=== PATIENT | female | born 1960 | race Caucasian/White ===

== ENCOUNTER 2023-08-13 10:05 | Inpatient (IN) ==
--- NOTE | 2023-08-13 11:07 | Emergency Department Note ---
Impression & Plan Delusions, Bipolar depression, Schizoaffective disorder, Noncompliance with medication regimen ED Provider Note ED Provider Note NAME: SASHA GREWAL AGE:62 SEX: Female : 1960 ARRIVES VIA: Private vehicle INFORMANT: Patient, daughter ED PROVIDER(s): Claudia Mcgowan DO CHIEF COMPLAINT: Mental health evaluation HPI: This is a 62-year-old female who presents with family at bedside due to concern for worsening mental health. Patient does have mental health history, and daughter states has been off of her medications for several weeks and has deteriorated. They were at an outpatient mental health appointment today when patient also made a suicidal statement in front of the physician advertising assistant. Daughter states this was new and different for her as well. Daughter states when she is off her medications she will typically say bizarre things but she had never made statements of suicide. No prior suicide attempt. Daughter states she is also noticed as she has gotten older when she does stop taking her medications her symptoms seem worse than when she was younger. Daughter states she has a power of state's attorney and has been helping to care for her since she was 17. Patient states she is a smoker, denies drug or alcohol use. She has difficulty answering specific questions at bedside regarding her general health. PAST MEDICAL HISTORY:See Below PAST SURGICAL HISTORY:See Below FAMILY HISTORY:See Below SOCIAL HISTORY:See Below HOME MEDICATIONS:See Below ALLERGIES:See Below VITALS:See Below PHYSICAL EXAMINATION: GENERAL: alert, unwell appearing, no distress, non-toxic, poor hygiene EYE EXAM: normal conjunctiva, PERRL and EOM's grossly intact OROPHARYNX: no exudate, no erythema, lips, buccal mucosa, and tongue normal and mucous membranes are dry, poor dentition and mostly edentulous NECK: supple, no nuchal rigidity, no adenopathy, non-tender LUNGS: Clear to auscultation. Normal chest wall mechanics, no w/r/r HEART: no murmurs, S1 normal and S2 normal ABDOMEN: abdomen soft, non-tender, normo-active bowel sounds, no masses, no rebound or guarding. BACK: Back is symmetrical on inspection and there is no deformity, no midline tenderness, no CVA tenderness. SKIN: no rashes, petechiae, orbruising UPPER EXTREMITIES: upper extremities are grossly normal. FROM, nml pulses b/l. LOWER EXTREMITIES: No pitting edema. FROM, nml pulses b/l. NEURO EXAM: Normal sensorium, cranial nerves II-XII grossly intact, normal speech, no facial droop,nogross weakness of arms, no gross weakness of legs. Gross sensation intact. No ataxia. Vital Signs: reviewed and remarkable Differential Diagnosis: mood disorder, suicidal ideation, anxiety, depression, substance abuse, toxidrome, infection, hypoglycemia, electrolyte abnormalities, ICH as well as others were considered. MEDICAL DECISION MAKING: This is a 62-year-old female who presents due to family concern for deterioration in her overall condition as she has been noncompliant taking medications for her mental health. Patient was afebrile vital signs stable. Patient with difficulty answering questions at bedside with scattered thoughts. She did voice suicidal ideation to her mental health practitioner this morning during a visit. Daughter provides most of the history at bedside. Labs drawn and sent, IV established, EKG performed at bedside and interpreted by me and patient monitored on telemetry. She was given IV fluids and sent for CT of the head additionally. Patient's labs and imaging reassuring. Patient evaluated by case management. 302 petition started by daughter signed by me and delegate contacted. Patient accepted to [facility] for additional inpatient mental health treatment. Consultation(s): 1306: Patient seen and evaluated by case management. Daughter filled out 302 petition. 302 signed by me. Delegate contacted by manager case. ER Treatment Provided: See below Diagnostics Interpreted By Me: -ECG: Normal sinus at 68, normal axis, normal intervals, no acute ST/T wave changes -Cardiac Monitoring: An order was placed for continuous cardiac monitoring. The monitor shows a rate of 78 with normal sinus rhythm. -Laboratory studies: As stated above and show below. -Imaging studies: CT head: No obvious ICH X-ray Chest: A single view study of the chest was reviewed and was negative for cardiomegaly, focal infiltrate, effusion, pulmonary edema, or wide mediastinum. Triage Nursing Note Reviewed Prior/Outside Records Reviewed Past Med/Surg History Medical History (Updated 08/13/23 @ 15:53 by Claudia Mcgowan DO) Emphysema lung Postmenopausal bleeding Hyperlipidemia Anemia Schizoaffective disorder Insomnia Bipolar depression Surgical History S/P BSO (bilateral salpingo-oophorectomy) UNILATERAL, patient thinks Left ovary gone No significant past surgical history Family History Brother Lung cancer Social History (Updated 06/07/23 @ 14:27 by Rona Jaime LPN) Smoking Status: Current every day smoker Tobacco Type: Cigarettes Age Started Using Tobacco: 16; packs per day: 0.50; Cigarettes Per Day: 10; Second Hand Exposure: Yes; Do You Dip or Chew Tobacco: No; Hx Alcohol Use: Yes Alcohol type: beer Alcohol type Comment: rarely consumes anymore, just holidays. Hx Substance Use: Yes (hx of drug abuse 10 + years ago) Prescribed Medications: Marijuana and Other Non-Prescribed Medications: Hallucinogens and Marijuana Last Used Substance Other:: 10 years ago Preferred Language: Maltese Beliefs That Will Affect Care: None marital status: Current Living Situation: Alone current occupational status: unemployed How many Children do You have: 3 Feels Safe at Home: Yes Childhood Exposure to Second-Hand Smoke: Yes Diet: regular caffeine: Yes (does 1/2 caffeine 1/2 decaf) Dental Care, Regularly: No Physical Activity Frequency: Daily Physical Activity Frequency Comment: walks a lot Seatbelt Use: always Sunscreen Use: No Gender Identity: Female Assistive Devices: Glasses Allergies Allergies Allergy/AdvReac Type Severity Reaction Status Date / Time No Known Allergies Allergy Verified 07/02/23 12:25 Home Meds Home Medications Medication Instructions Recorded Confirmed paliperidone palmitate 156 mg/mL 156 mg IM Q30D 06/07/23 08/13/23 intramuscular syringe (Invega Sustenna) risperidone 2 mg tablet 2 mg PO DAILY 06/07/23 08/13/23 Previous Rx's Medication Instructions Recorded Cock-Up Wrist Splint Short #2 ea 02/13/19 calcium carbonate 500 mg calcium 500 mg PO DAILY PRN dyspepsia #30 03/16/23 (1,250 mg) tablet tabs sertraline 50 mg tablet 50 mg PO DAILY #30 tabs 06/08/23 trazodone 100 mg tablet 100 mg PO DAILY #30 tabs 06/08/23 divalproex 250 mg tablet,delayed 250 mg PO BID #60 tabs 06/09/23 release Results & Data (ED) Vital Signs Vital Signs - 24 hr 08/13/23 10:15 08/13/23 13:15 Temperature 37 C 36.8 C Temperature Source Oral Oral Pulse Rate 86 Pulse Rate [Right Finger] 74 Respiratory Rate 18 22 Blood Pressure 132/87 Blood Pressure [Right Arm] 115/74 Blood Pressure Mean 102 Blood Pressure Mean [Right Arm] 87 Blood Pressure Position Sitting Pulse Oximetry 93 95 Oxygen Delivery Method Room Air Room Air Sepsis Recent Fever Within 48 Hours No Sepsis New/Unexplained Change in Mental Status No Sepsis Action Taken by Nursing No Action Required Laboratory Data 08/13/23 11:54 08/13/23 11:54 Lab Results 08/13/23 08/13/23 08/13/23 Range/Units 10:35 11:53 11:54 WBC 7.26 (4.8-10.8) K/ul RBC 5.08 (4.20-5.40) M/uL Hgb 15.2 (12.0-16.0) g/dl Hct 46.4 (37.0-47.0) % MCV 91.3 (80.0-100.0) fL MCH 29.9 (25.0-34.0) pg MCHC 32.8 (32.0-36.0) g/dL RDW Std Deviation 42.0 (36.4-46.3) fL RDW Coeff of Merissa 12.5 (11.5-14.5) % Plt Count 212 (130-400) K/uL MPV 10.5 (9.4-12.4) fL Immature Gran % (Auto) 0.3 % Neut % (Auto) 64.4 % Lymph % (Auto) 28.5 % Gallia % (Auto) 5.4 % Eos % (Auto) 0.8 % Baso % (Auto) 0.6 % Neut # (Auto) 4.68 (1.40-6.50) K/uL Lymph # (Auto) 2.07 (1.20-3.40) K/uL Gallia # (Auto) 0.39 (0.11-0.59) K/uL Eos # (Auto) 0.06 (0.00-0.50) K/uL Baso # (Auto) 0.04 (0.00-0.20) K/uL Immature Gran # (Auto) 0.02 (0.01-0.20) K/uL Sodium 139 (136-145) mmol/L Potassium 4.0 (3.5-5.1) mmol/L Chloride 107 (98-107) mmol/L Carbon Dioxide 28 (21-32) mmol/L Anion Gap 4 (3-11) BUN 15 (6-23) mg/dl Creatinine 0.67 (0.6-1.2) mg/dl Est Cr Clr Drug Dosing 74.2 ml/min Est GFR ( Amer) 108.4 ml/min Est GFR (Non-Af Amer) 93.5 ml/min BUN/Creatinine Ratio 22.4 H (10-20) Glucose 97 (70-99(Fasting)) mg/dl Calcium 9.3 (8.6-10.3) mg/dl Total Bilirubin 0.4 (0.2-1.0) mg/dl AST 13 (13-39) U/L ALT 7 (7-52) U/L Alkaline Phosphatase 55 (34-104) U/L Total Protein 6.8 (6.0-8.3) gm/dl Albumin 4.1 (3.4-5.0) gm/dl Globulin 2.7 (2.5-4.0) gm/dl Albumin/Globulin Ratio 1.5 (0.9-2) TSH 0.700 (0.300-4.500) uIu/ml Urine Color Yellow Urine Appearance Clear (Clear) Urine pH 7.0 (4.5-7.5) Ur Specific [place] 1.006 (1.000-1.030) Urine Protein Negative (Negative) Urine Glucose (UA) Negative (Negative) Urine Ketones Negative (Negative) Urine Blood Negative (Negative) Urine Nitrite Negative (Negative) Urine Bilirubin Negative (Negative) Urine Urobilinogen Negative (Negative) Ur Leukocyte Esterase 1+ H (Negative) Urine WBC (Auto) 1-5 (0-5) /hpf Urine RBC (Auto) 0-4 (0-4) /hpf U Hyaline Cast (Auto) 0 (0-5) /lpf U Epithel Cells (Auto) 10-20 H (0-5) /lpf Urine Bacteria (Auto) Negative (Negative) Salicylates < 3.0 L (3.0-30) mg/dl Urine Opiates Screen Neg (Neg) Ur Methadone, Qual Neg (Neg) Acetaminophen < 3 L (10-30) ug/ml Urine Barbiturates Neg (Neg) Ur Phencyclidine (PCP) Neg (Neg) U Amphetamin/Meth Scrn Neg (Neg) MDMA (Ecstasy) Screen Neg (Neg) U Benzodiazepines Scrn Neg (Neg) Ur Cocaine Metabolite Neg (Neg) U Marijuana (THC) Screen Neg (Neg) Ethyl Alcohol mg/dL < 10.0 (<10.0) mg/dl SARS-CoV-2, RNA, NAAT NEGATIVE (NEGATIVE) Administered Medications Sodium Chloride (Nss) 1,000 mls @ 125 mls/hr IV .Q8H DICK Stop: 09/12/23 11:14 Last Infusion: 08/13/23 14:54 Dose: 0 mls/hr Documented By: Admin: 08/13/23 12:15 Dose: 125 mls/hr Documented By: CPB Imaging Data Radiologist's Impression: Head CT 08/13/23 11:[address] DOSE: 547.75 mGy.cm HISTORY: delirium TECHNIQUE: Multiaxial CT images of the head were performed without the use of intravenous contrast. Automated exposure control was utilized for this study. A dose lowering technique was utilized adhering to the principles of ALARA. Comparison: None. Findings: The paranasal sinuses and mastoid air cells are clear. The calvarium and skull base are intact. The ventricles and sulci are within normal limits. There is no mass, hematoma, midline shift, or acute infarct. Impression: No acute intracranial abnormality. ACT 112: Negative or not required by law. Electronically signed by: Santiago Gibbs M.D. 08/13/2023 12:05 PM Chest X-Ray 08/13/23 11:03 XR chest 1V portable HISTORY: 62 years-old Female delirium acutely altered mental status COMPARISON: None TECHNIQUE: AP view of the chest FINDINGS: Cardiomediastinal and hilar silhouettes are within normal limits. No pneumothorax, pleural effusion or airspace consolidation. The bones appear grossly intact. Mild linear subsegmental atelectasis versus scarring. IMPRESSION: Cardiomegaly without acute process. ACT 112: Negative or not required by law. The above report was generated using voice recognition software. It may contain grammatical, syntax or spelling errors. Electronically signed by: Jose Hernández M.D. 08/13/2023 11:49 AM Discharge Plan Visit Data Chief Complaint: Mental Health Evaluation Stated Complaint: STATING SHE DOES NOT WANT TO LIVE ED Provider: Claudia Mcgowan Discharge Problem: Delusions, Bipolar depression, Schizoaffective disorder, Noncompliance with medication regimen Patient Disposition: Admitted As Inpatient Discharge Instructions Interventions: ED Discharge Assessment Last Done: 08/13/23 14:52
[2023-08-13 11:27] LABS: Appearance Urine Clear (Clear); Bacteria Urine Automated Negative (Negative); Bilirubin Urine Negative (Negative); Blood Urine Negative (Negative); Cast Urine Automated 0 /lpf (0-5); Color Urine Yellow; Glucose Urine UA Negative (Negative); Ketones Urine Negative (Negative); Leukocyte Esterase Urine 1+ (Negative); Nitrite Urine Negative (Negative); Protein Urine Negative (Negative); RBC Urine Automated 0-4 /hpf (0-4); Specific Gravity Urine 1.006 (1.000-1.030); Urobilinogen Urine Negative (Negative)
--- NOTE | 2023-08-13 11:50 | XRay Report ---
XR chest 1V portable HISTORY: 62 years-old Female delirium acutely altered mental status COMPARISON: None TECHNIQUE: AP view of the chest FINDINGS: Cardiomediastinal and hilar silhouettes are within normal limits. No pneumothorax, pleural effusion o r airspace consolidation. The bones appear grossly intact. Mild linear subsegmental atelectasis versu s scarring. IMPRESSION: Cardiomegaly without acute process. ACT 112: Negative or not required by law. The above report was generated using voice recognition software. It may contain grammatical, syntax o r spelling errors. Electronically signed by: Jose Hernández M.D. 08/13/2023 11:49 AM
[2023-08-13 11:53] LABS: Amphetamines+Metham, Urine Neg (Neg); Barbiturates, Urine Neg (Neg); Benzodiazepine, Urine Neg (Neg); Cocaine, Urine Neg (Neg); MDMA (Ecstacy), Urine Neg (Neg); Marijuana, Urine Neg (Neg); Methadone, Urine Neg (Neg); Opiate, Urine Neg (Neg); Phencyclidine, Urine Neg (Neg)
--- NOTE | 2023-08-13 12:06 | CT Scan Report ---
HEAD CT NONCONTRAST CT DOSE: 547.75 mGy.cm HISTORY: delirium TECHNIQUE: Multiaxial CT images of the head were performed without the use of intravenous contrast. A utomated exposure control was utilized for this study. A dose lowering technique was utilized adheri ng to the principles of ALARA. Comparison: None. Findings: The paranasal sinuses and mastoid air cells are clear. The calvarium and skull base are int act. The ventricles and sulci are within normal limits. There is no mass, hematoma, midline shift, or acute infarct. Impression: No acute intracranial abnormality. ACT 112: Negative or not required by law. Electronically signed by: Santiago Gibbs M.D. 08/13/2023 12:05 PM
[2023-08-13] MEDS: SODIUM CHLORIDE 0.9% 1,000 ML IV SCH (12:15)
[2023-08-13 12:29] LABS: Basophils # (auto) 0.04 K/uL (0.00-0.20); Basophils % (auto) 0.6 %; Eosinophils # (auto) 0.06 K/uL (0.00-0.50); Eosinophils % (auto) 0.8 %; Hematocrit (blood only) 46.4 % (37.0-47.0); Hemoglobin 15.2 g/dl (12.0-16.0); Immature Granulocytes # (auto) 0.02 K/uL (0.01-0.20); Immature Granulocytes % (auto) 0.3 %; Lymphocytes # (auto) 2.07 K/uL (1.20-3.40); Lymphocytes % (auto) 28.5 %; Mean Corpuscular Hemoglobin 29.9 pg (25.0-34.0); Mean Corpuscular Hgb Conc 32.8 g/dL (32.0-36.0); Mean Corpuscular Volume 91.3 fL (80.0-100.0); Mean Platelet Volume 10.5 fL (9.4-12.4); Monocytes # (auto) 0.39 K/uL (0.11-0.59); Monocytes % (auto) 5.4 %; Neutrophils # (auto) 4.68 K/uL (1.40-6.50); Neutrophils % (auto) 64.4 %; Platelet Count 212 K/uL (130-400); RDW Coefficient of Variation 12.5 % (11.5-14.5); Red Blood Count 5.08 M/uL (4.20-5.40); White Blood Count 7.26 K/ul (4.8-10.8)
[2023-08-13 12:34] LABS: Albumin Globulin Ratio 1.5 (0.9-2); Albumin Level 4.1 gm/dl (3.4-5.0); BUN Creatinine Ratio 22.4 (10-20); Bilirubin,Total 0.4 mg/dl (0.2-1.0); Calcium 9.3 mg/dl (8.6-10.3); Creatinine Clr Calc Pharmacy 74.2 ml/min; Est GFR (African American) 108.4 ml/min; Est GFR (Non-African American) 93.5 ml/min; Globulin 2.7 gm/dl (2.5-4.0); Total Protein 6.8 gm/dl (6.0-8.3)
[2023-08-13 12:49] LABS: Thyroid Stimulating Hormone 0.7 uIu/ml (0.300-4.500)
[2023-08-13 13:57] LABS: Acetaminophen < 3 ug/ml (10-30); Salicylate < 3.0 mg/dl (3.0-30)
[2023-08-13] MEDS ORDERED: BISMUTH SUBSALICYLATE LIQD 236 ML PO PRN (16:37)
[2023-08-13] MEDS ORDERED: ALUMINUM/MAGNESIUM SUSP 30 ML UDC PO PRN (16:37)
[2023-08-13] MEDS ORDERED: hydrOXYzine HCl 25 MG TAB PO PRN ×2 (16:37)
[2023-08-13] MEDS ORDERED: SODIUM CHLORIDE 0.65% NA SOLN 45 ML (OCEAN) PRN (16:37)
[2023-08-13] MEDS ORDERED: NICOTINE POLACRILEX 2 MG GUM MT PRN (16:37)
[2023-08-13] MEDS ORDERED: MAGNESIUM HYDROXIDE SUSP 30 ML UDC PO PRN (16:37)
[2023-08-13] MEDS: ACETAMINOPHEN 325 MG TAB PO PRN (19:18)
[2023-08-13] MEDS: risperiDONE 2 MG TABLET PO SCH (21:07)
[2023-08-14] MEDS: ALBUTEROL HFA 8 GM INHALER INH PRN (07:15)
--- NOTE | 2023-08-14 07:59 | Electrocardiogram Report ---
Test Reason : Blood Pressure : / mmHG Vent. Rate : 068 BPM Atrial Rate : 068 BPM P-R Int : 146 ms QRS Dur : 080 ms QT Int : 402 ms P-R-T Axes : 042 017 036 degrees QTc Int : 427 ms Poor data quality, interpretation may be adversely affected Normal sinus rhythm Normal ECG When compared with ECG of 05-APR-2023 21:36, No significant change was found Confirmed by Eran Rutherford ([id number]) on 08/14/2023 7:58:54 AM Referred By: REFERRED SELF Confirmed By:Eran Rutherford
[2023-08-14] MEDS: SERTRALINE HCL 50 MG TABLET PO SCH (08:20)
[2023-08-14] MEDS: DIVALPROEX DELAY RELEASE 250 MG TABEC PO SCH (08:20)
[2023-08-14] MEDS: ALBUT/IPRATROP 3MG/0.5MG NEB 3 ML VIAL INH STA (08:35)
--- NOTE | 2023-08-14 13:06 | History & Physical ---
Date of Service August 14, 2023 Impression / Recommendations Impression 62 yo female with a hx of recurrent disorganization/psychosis associated with mood lability presented to ED after period of med noncompliance more disorganized and making suicidal statements to daughter. Overall, I spent a total of 64 minutes with this case, including review of chart, review of records, direct evaluation of the patient, counseling the patient, ordering medication, coordination with nursing, risk assessment, and documentation. (1) Schizoaffective disorder: Plan The patient was admitted to the [facility] ([facility] mental health unit) on q15 min checks (behavioral with suicide precautions) for safety. The patient will participate in group, recreational, and milieu therapies and will be offered additional individual and family sessions as clinically appropriate. risks/benefits/alternatives reviewed re: current medications which she agreed to resume, including oral Invega with plan for GALVIN. pulse ox q shift. Inventory Assets Strengths: verbal, accepting of daughter's help Needs: improve coping and medication compliance Suicide Risk Level Suicide Risk Level: Moderate (q15 min suicide checks) Risk Factors Assessment : Yes Do You Have Access To A Gun?: Yes Health Problems: Yes Mental Health Diagnoses: Yes Substance Use Disorders: No Previous Attempt: No Previous Psychiatric Hospitalization: Yes Protective Factors Assessment : No Employed: No ([employer]DI for mental health) Supportive Family: Yes Psychiatric History Identifying Data SASHA GREWAL is a 62-year-old F who currently lives in [place], has a history of multiple psychiatric hospitalizations for schizoaffective disorder, and was admitted on 08/13/23 15:20 on a 302 involuntary commitment for psychosis/SI. Chief Complaint decompensation due to med noncompliance following inpatient hospitalization 03/2023. History of Present Illness History reviewed and confirmed as per ED CM: Met with patient bedside along with patients daughterNita to complete mental health evaluation. Patient presents sad, bizarre in her responses to questions asked of her, but remains cooperative. Patient admits to suicidal ideations that come and go, but has no particular plan, reporting to history of suicide attempt. When patient was being triaged, she stated that she overdosed, according to patients daughter she did not overdose because she does not have anything to overdose with. Patient will randomly make statements that do not relate to what is being discussed, i.e. I a virgin [place] I am and have been . Patient denies any visual or auditory hallucinations, but reports history. Patient stopped taking her prescribed medications around the end of July because she lost prescriber. Today, patient had an appointment with medication management with [facility]. Patients daughter provided a list of the most recent medications that were prescribed at her last inpatient admission to [facility]. After discharge from [facility] patients daughter felt her Mom was the most stable she has seen her. Patient is diagnosed with Bipolar Disorder and Schizoaffective Disorder. Patient reports stressors as side effects from all of the medication she has been taking and the changes to her medications over the past year. Patient reports depressive symptoms as feelings of helpless/hopelessness, loss of daily functioning, lack of motivation and decrease in ADLs, patient is malodorous. Patient describes severe anxiety on most days with symptoms of hot flashes, shortness of breath and hiccups with occasional panic attacks. Patient was a former alcoholic and drug user but only drinks on rare occasions and does not use drugs now. Patient smokes a pack of cigarettes daily. Patient lives alone in an apartment and receives SSDI for her mental health. Patient reports hyperthyroidism, emphysema, anemia and occasional headaches. Patient had all of her teeth pulled about 5 year ago, had two sets of dentures, but has lost both sets. Dr. Mcgowan does not believe patient has capacity to sign herself in for psychiatric treatment and patients daughter completed petitioning statement and it reads as follows: Sol has made statements that are concerning; she has stated she does not want to be alive. She has been hallucinating, talking to people who are not there. She says she is and has been for a long time. She has stated she sees birds and they are pecking at her head and now she is . She is seeing and hearing things. She makes open threats, but it is a concern that she has stated she no longer wants to live. She is not in a stable state of mind to make decisions. She is making statements that are false in triage about overdosing. She is not on any drugs she is not mentally stable and has been delusional. She has been diagnosed with bipolar, schizophrenia, manic depression, facing thoughts and is recently treating with [facility]. She has been off her medication which heightens her symptoms. She makes threats of killing people, she has stated she doesnt want to live at all and she is she admits it. The patient has been cooperative with [employer] as ordered and unit routines. She denies COPD symptoms but did have some transient O2 sat <90 earlier this am, inhaler ordered. Patient knows that does best when takes medication for her schizoaffective disorder. It seems like there was some disruption in routine due to [facility] in [facility] and needed to transfer to [facility] [employer] [facility] as relies on daughter for transportation. Unclear if she f/u with [facility] recently/since hospital stay. She is presenting as much clearer than yesterday, perhaps as got a dose of Risperdal and settled into milieu. In looking through past ED visits and records that was hospitalized more twice in the fall and tends to exhibit disorganized behavior off of medication such as hoarding, lack of self care then intermittent agitation. Past Psychiatric History Current Psychiatric Diagnosis: schizoaffective disorder, depression, anxiety Outpatient Services: [facility] for med management Previous Psych Admissions: estimates 20 or more, more recent 03/22 [facility], 04/22 [facility] Do You Have Access To A Gun?: Yes History of Previous Suicide Attempt: No Past Medication Trials: not exhaustive list, chart notes back to 2018 list Abilify, previous lithium, trazodone, etc. Patient on Depakote and Zyprexa following [facility] stay then given Invega injection at [facility] Allergies Allergy/AdvReac Type Severity Reaction Status Date / Time No Known Allergies Allergy Verified 07/02/23 12:25 Home Medications Medication Instructions Recorded Confirmed Type Cock-Up Wrist Splint Short #2 ea 02/13/19 07/02/23 Rx calcium carbonate 500 mg calcium 500 mg PO DAILY PRN dyspepsia #30 03/16/23 08/13/23 Rx (1,250 mg) tablet tabs paliperidone palmitate 156 mg/mL 156 mg IM Q30D 06/07/23 08/13/23 History intramuscular syringe (Invega Sustenna) risperidone 2 mg tablet 2 mg PO DAILY 06/07/23 08/13/23 History sertraline 50 mg tablet 50 mg PO DAILY #30 tabs 06/08/23 08/13/23 Rx trazodone 100 mg tablet 100 mg PO DAILY #30 tabs 06/08/23 08/13/23 Rx divalproex 250 mg tablet,delayed 250 mg PO BID #60 tabs 06/09/23 08/13/23 Rx release Family History Family History of: Alcoholism/Drug Abuse Family Mental Health History Comment: "younger brother" Alcohol History Hx of Alcohol Use Over the Past 12 Months: Yes (1 drink every 3 months) AUDIT Total Score: 1 Smoking Use Have You Smoked or Used Tobacco Products in the Last 30 Days: Yes tobacco type: cigarettes Smoking Status: Current every day smoker Smoking packs per day: 1 Substance History Hx of Prescription Med Misuse Over the Past 12 Months: No Hx of Over the Counter Med Misuse Over the Past 12 Months: No Hx of Inhalent Misuse Over the Past 12 Months: No Hx of Organic Substance Use Over the Past 12 Months: No Hx of Illegal Substances/Street Drug Use Over Past 12 Months: No Problems as a Result of Past Substance Use: None Identified Personal History Living Arrangements: Apartment Highest Grade Completed: High School Graduate Marital Status: Number Of Children: 3 Beliefs That Will Affect Care: None Current Legal Problems: No Additional Comments: did not report trauma hx Patient History Medical History Emphysema lung Postmenopausal bleeding Hyperlipidemia Anemia Schizoaffective disorder Insomnia Bipolar depression Surgical History S/P BSO (bilateral salpingo-oophorectomy) UNILATERAL, patient thinks Left ovary gone No significant past surgical history Family History Brother Lung cancer Social History (Updated 06/07/23 @ 14:27 by Rona Jaime LPN) Smoking Status: Current every day smoker Tobacco Type: Cigarettes Age Started Using Tobacco: 16; packs per day: 0.50; Cigarettes Per Day: 10; Second Hand Exposure: Yes; Do You Dip or Chew Tobacco: No; Hx Alcohol Use: Yes Alcohol type: beer Alcohol type Comment: rarely consumes anymore, just holidays. Hx Substance Use: Yes (hx of drug abuse 10 + years ago) Prescribed Medications: Marijuana and Other Non-Prescribed Medications: Hallucinogens and Marijuana Last Used Substance Other:: 10 years ago Preferred Language: Welsh Communication Ability: Effective Breastfeeding Educator Required: No Beliefs That Will Affect Care: None marital status: Current Living Situation: Alone current occupational status: unemployed How many Children do You have: 3 Feels Safe at Home: Yes Childhood Exposure to Second-Hand Smoke: Yes Diet: regular caffeine: Yes (does 1/2 caffeine 1/2 decaf) Dental Care, Regularly: No Physical Activity Frequency: Daily Physical Activity Frequency Comment: walks a lot Seatbelt Use: always Sunscreen Use: No Gender Identity: Female Assistive Devices: None and Glasses Review of Systems Review of Systems: All systems reviewed & are unremarkable except as noted in HPI & below Physical Exam Psychiatric: Orientation: alert and oriented x 3 Apperance: appropriately dressed and + disheveled Eye Contact: + fair eye contact Motor Behavior: no abnormal motor movements (but poor dentition so tongue more prominent) Speech: normal rate/rhythm/volume of speech Affect: + constricted affect Mood: + depressed mood Thought Process: + concrete thought process Thought Content: reality based without delusions Suicidal Thoughts: denies suicidal thoughts Homicidal Thoughts: denies homicidal thoughts Hallucinations: no auditory hallucinations and no visual hallucinations Cognition: language grossly intact; + attention not intact Estimated Intelligence: consistent with education level Insight: + limited insight Judgment: + limited judgement Vital Signs (Past 24 Hours): Last Vital Signs Temp 36.6 C 08/14/23 06:20 Pulse 80 08/14/23 06:20 Resp 18 08/14/23 06:20 BP 93/57 L 08/14/23 06:20 Pulse Ox 95 08/14/23 12:46 O2 Del Method Room Air 08/14/23 12:46 Exam Statement: A physical exam was performed in the ED by Dr. Mcgowan for the purposes of medical clearance. I accept that physical as correct and adequate for the purposes of the inpatient physical exam. Results & Data [facility] Laboratory Results Labs 08/13/23 08/13/23 08/13/23 10:35 11:53 11:54 WBC 7.26 RBC 5.08 Hgb 15.2 Hct 46.4 MCV 91.3 MCH 29.9 MCHC 32.8 RDW Std Deviation 42.0 RDW Coeff of Merissa 12.5 Plt Count 212 MPV 10.5 Immature Gran % (Auto) 0.3 Neut % (Auto) 64.4 Lymph % (Auto) 28.5 [place] % (Auto) 5.4 Eos % (Auto) 0.8 Baso % (Auto) 0.6 Neut # (Auto) 4.68 Lymph # (Auto) 2.07 [place] # (Auto) 0.39 Eos # (Auto) 0.06 Baso # (Auto) 0.04 Immature Gran # (Auto) 0.02 Sodium 139 Potassium 4.0 Chloride 107 Carbon Dioxide 28 Anion Gap 4 BUN 15 Creatinine 0.67 Est Cr Clr Drug Dosing 74.2 Est GFR ( Amer) 108.4 Est GFR (Non-Af Amer) 93.5 BUN/Creatinine Ratio 22.4 H Glucose 97 Calcium 9.3 Total Bilirubin 0.4 AST 13 ALT 7 Alkaline Phosphatase 55 Total Protein 6.8 Albumin 4.1 Globulin 2.7 Albumin/Globulin Ratio 1.5 TSH 0.700 Urine Color Yellow Urine Appearance Clear Urine pH 7.0 Ur Specific [place] 1.006 Urine Protein Negative Urine Glucose (UA) Negative Urine Ketones Negative Urine Blood Negative Urine Nitrite Negative Urine Bilirubin Negative Urine Urobilinogen Negative Ur Leukocyte Esterase 1+ H Urine WBC (Auto) 1-5 Urine RBC (Auto) 0-4 U Hyaline Cast (Auto) 0 U Epithel Cells (Auto) 10-20 H Urine Bacteria (Auto) Negative Salicylates < 3.0 L Urine Opiates Screen Neg Ur Methadone, Qual Neg Acetaminophen < 3 L Urine Barbiturates Neg Ur Phencyclidine (PCP) Neg U Amphetamin/Meth Scrn Neg MDMA (Ecstasy) Screen Neg U Benzodiazepines Scrn Neg Ur Cocaine Metabolite Neg U Marijuana (THC) Screen Neg Ethyl Alcohol mg/dL < 10.0 SARS-CoV-2, RNA, NAAT NEGATIVE Laboratory Results - last 24 hr 08/13/23 11:54 TSH 0.700 Salicylates < 3.0 L Acetaminophen < 3 L Diagnostic Findings Head CT 08/13/23 11:[address] DOSE: 547.75 mGy.cm HISTORY: delirium TECHNIQUE: Multiaxial CT images of the head were performed without the use of intravenous contrast. Automated exposure control was utilized for this study. A dose lowering technique was utilized adhering to the principles of ALARA. Comparison: None. Findings: The paranasal sinuses and mastoid air cells are clear. The calvarium and skull base are intact. The ventricles and sulci are within normal limits. There is no mass, hematoma, midline shift, or acute infarct. Impression: No acute intracranial abnormality. ACT 112: Negative or not required by law. Electronically signed by: Santiago Gibbs M.D. 08/13/2023 12:05 PM Chest X-Ray 08/13/23 11:03 XR chest 1V portable HISTORY: 62 years-old Female delirium acutely altered mental status COMPARISON: None TECHNIQUE: AP view of the chest FINDINGS: Cardiomediastinal and hilar silhouettes are within normal limits. No pneum othorax, pleural effusion or airspace consolidation. The bones appear grossly intact. Mild linear subsegmental atelectasis versus scarring. IMPRESSION: Cardiomegaly without acute process. ACT 112: Negative or not required by law. The above report was generated using voice recognition software. It may contain grammatical, syntax or spelling errors. Electronically signed by: Jose Hernández M.D. 08/13/2023 11:49 AM Current Inpatient Medications Current Inpatient Medications: Current Inpatient Medications Acetaminophen (Acetaminophen 325 Mg Tab) 650 mg PO Q4H PRN PRN Reason: Headache or Minor Fever Stop: 09/12/23 16:36 Last Admin: 08/13/23 19:18 Dose: 650 mg Al Hydrox/Mg Hydrox/Simethicone (Aluminum/Magnesium Susp 30 Ml Udc) 30 ml PO Q4H PRN PRN Reason: GI Upset Stop: 09/12/23 16:36 Albuterol (Albuterol Hfa 8 Gm Inhaler) 2 puffs INH Q4 PRN PRN Reason: Wheezing Stop: 09/13/23 07:59 Last Admin: 08/14/23 07:15 Dose: 2 puffs Bismuth Subsalicylate (Bismuth Subsalicylate Liqd 236 Ml) 15 ml PO PRN PRN PRN Reason: Loose Stool Stop: 09/12/23 16:36 Divalproex Sodium (Divalproex Delay Release 250 Mg Tabec) 250 mg PO BID DICK Stop: 09/13/23 08:59 Last Admin: 08/14/23 08:20 Dose: 250 mg Hydroxyzine HCl (Hydroxyzine Hcl 25 Mg Tab) 50 mg PO HSZ PRN PRN Reason: Insomnia Stop: 09/12/23 16:36 Hydroxyzine HCl (Hydroxyzine Hcl 25 Mg Tab) 25 mg PO Q4H PRN PRN Reason: Anxiety Stop: 09/12/23 16:36 Magnesium Hydroxide (Magnesium Hydroxide Susp 30 Ml Udc) 30 ml PO DAILY PRN PRN Reason: Constipation Stop: 09/12/23 16:36 Nicotine Polacrilex (Nicotine Polacrilex 2 Mg Gum) 1 piece MT PRN PRN PRN Reason: Nicotine Withdrawal Symptoms Stop: 09/12/23 16:36 Paliperidone (Paliperidone 3 Mg Tabcr) 3 mg PO QAM DICK Stop: 09/14/23 08:59 Risperidone (Risperidone 2 Mg Tablet) 2 mg PO HS DICK Stop: 09/12/23 21:59 Last Admin: 08/13/23 21:07 Dose: 2 mg Sertraline HCl (Sertraline Hcl 50 Mg Tablet) 50 mg PO DAILY DICK Stop: 09/13/23 08:59 Last Admin: 08/14/23 08:20 Dose: 50 mg Sodium Chloride (Sodium Chloride 0.65% Na Soln 45 Ml ([place])) 1 - 2 sprays NA PRN PRN PRN Reason: Nasal Dryness/Congestion Stop: 09/12/23 16:36
[2023-08-15] MEDS: PALIPERIDONE 3 MG TABCR PO SCH (07:51)
--- NOTE | 2023-08-15 11:24 | Psychiatric Progress Note ---
Date of Service August 15, 2023 Impression / Recommendations Impression 62 yo female with a hx of recurrent disorganization/psychosis associated with mood lability presented to ED after period of med noncompliance more disorganized and making suicidal statements to daughter. Overall, I spent a total of 38 minutes with this case, including review of chart, direct evaluation of the patient, counseling the patient, ordering medication, coordination with nursing, and documentation. (1) Schizoaffective disorder: Plan 08/15/23: titrate Invega to 6 mg. Continue Risperdal in pm for now. Depakote level in am 08/18/23 with fasting metabolic labs. 08/14/23: The patient was admitted to the [facility] ([facility] mental health unit) on q15 min checks (behavioral with suicide precautions) for safety. The patient will participate in group, recreational, and milieu therapies and will be offered additional individual and family sessions as clinically appropriate. risks/benefits/alternatives reviewed re: current medications which she agreed to resume, including oral Invega with plan for GALVIN. pulse ox q shift. Inventory Assets Strengths: verbal, accepting of daughter's help Needs: improve coping and medication compliance Suicide Risk Level Suicide Risk Level: Moderate (q15 min suicide checks) Risk Factors Assessment : Yes Do You Have Access To A Gun?: Yes Health Problems: Yes Mental Health Diagnoses: Yes Substance Use Disorders: No Previous Attempt: No Previous Psychiatric Hospitalization: Yes Protective Factors Assessment : No Employed: No ([employer] for mental health) Supportive Family: Yes Interval History Identifying Information SASHA GREWAL is a 62-year-old F who currently lives in [place], has a history of multiple psychiatric hospitalizations for schizoaffective disorder, and was admitted on 08/13/23 15:20 on a 302 involuntary commitment for psychosis/SI. Chief Complaint "I'm feeling some better. No breathing problems." Review of Systems Sleep Information Total Hours of Sleep: 6.30 Sleep Comments: HOB elevated Meal Information Percent Meal Consumed - Breakfast: 100 Percent Meal Consumed - Lunch: 100 Percent Meal Consumed - Dinner: 100 Subjective Subjective Patient was seen & assessed and interval progress reviewed with nursing and social work. Has generally denied hallucinations but last pm stood in room staring and covering her eyes. Patient also had transient decrease in O2 Sat before bed/upon awakening, is totally asymptomatic and declined inhaler. Patient is tolerating restart of medication, is eating/sleeping, and showering. I personally listened to her lungs this am and remain clear to auscultation, no wheezing or significantly prolonged expiratory phase. Physical Exam Psychiatric Orientation: alert and oriented x 3 Apperance: appropriately dressed and appropriately groomed Eye Contact: + fair eye contact Motor Behavior: no abnormal motor movements (but poor dentition so tongue more prominent) Speech: normal rate/rhythm/volume of speech Affect: + constricted affect Mood: no depressed mood Thought Process: + concrete thought process Thought Content: reality based without delusions Suicidal Thoughts: denies suicidal thoughts Homicidal Thoughts: denies homicidal thoughts Hallucinations: no auditory hallucinations and no visual hallucinations Cognition: attention grossly intact and language grossly intact Estimated Intelligence: consistent with education level Insight: + limited insight Judgment: + limited judgement Vital Signs (Past 24 Hours) Last Vital Signs Temp 36.7 C 08/15/23 06:26 Pulse 87 08/15/23 06:28 Resp 20 08/15/23 06:26 BP 102/70 08/15/23 06:28 Pulse Ox 88 L 08/15/23 06:26 O2 Del Method Room Air 08/15/23 06:26 Results & Data ([facility]) Current Inpatient Medications Current Inpatient Medications: Current Inpatient Medications Acetaminophen (Acetaminophen 325 Mg Tab) 650 mg PO Q4H PRN PRN Reason: Headache or Minor Fever Stop: 09/12/23 16:36 Last Admin: 08/13/23 19:18 Dose: 650 mg Al Hydrox/Mg Hydrox/Simethicone (Aluminum/Magnesium Susp 30 Ml Udc) 30 ml PO Q4H PRN PRN Reason: GI Upset Stop: 09/12/23 16:36 Albuterol (Albuterol Hfa 8 Gm Inhaler) 2 puffs INH Q4 PRN PRN Reason: Wheezing Stop: 09/13/23 07:59 Last Admin: 08/14/23 07:15 Dose: 2 puffs Bismuth Subsalicylate (Bismuth Subsalicylate Liqd 236 Ml) 15 ml PO PRN PRN PRN Reason: Loose Stool Stop: 09/12/23 16:36 Divalproex Sodium (Divalproex Delay Release 250 Mg Tabec) 250 mg PO BID DICK Stop: 09/13/23 08:59 Last Admin: 08/15/23 07:51 Dose: 250 mg Hydroxyzine HCl (Hydroxyzine Hcl 25 Mg Tab) 50 mg PO HSZ PRN PRN Reason: Insomnia Stop: 09/12/23 16:36 Hydroxyzine HCl (Hydroxyzine Hcl 25 Mg Tab) 25 mg PO Q4H PRN PRN Reason: Anxiety Stop: 09/12/23 16:36 Magnesium Hydroxide (Magnesium Hydroxide Susp 30 Ml Udc) 30 ml PO DAILY PRN PRN Reason: Constipation Stop: 09/12/23 16:36 Nicotine Polacrilex (Nicotine Polacrilex 2 Mg Gum) 1 piece MT PRN PRN PRN Reason: Nicotine Withdrawal Symptoms Stop: 09/12/23 16:36 Paliperidone (Paliperidone 3 Mg Tabcr) 3 mg PO QAM DICK Stop: 09/14/23 08:59 Last Admin: 08/15/23 07:51 Dose: 3 mg Risperidone (Risperidone 2 Mg Tablet) 2 mg PO HS DICK Stop: 09/12/23 21:59 Last Admin: 08/14/23 21:15 Dose: 2 mg Sertraline HCl (Sertraline Hcl 50 Mg Tablet) 50 mg PO DAILY DICK Stop: 09/13/23 08:59 Last Admin: 08/15/23 07:51 Dose: 50 mg Sodium Chloride (Sodium Chloride 0.65% Na Soln 45 Ml ([place])) 1 - 2 sprays NA PRN PRN PRN Reason: Nasal Dryness/Congestion Stop: 09/12/23 16:36 Post Discharge Appointments Primary Care Physician Name Of Family Doctor/PCP: Adelina Vaca
[2023-08-16] MEDS: PALIPERIDONE 3 MG TABCR PO SCH (08:18)
--- NOTE | 2023-08-16 08:31 | Psychiatric Progress Note ---
Date of Service August 16, 2023 Impression / Recommendations Impression 62 yo female with a hx of recurrent disorganization/psychosis associated with mood lability presented to ED after period of med noncompliance more disorganized and making suicidal statements to daughter. Overall, I spent a total of 35 minutes with this case, including review of chart, direct evaluation of the patient, counseling the patient, ordering medication, coordination with nursing, and documentation. (1) Schizoaffective disorder: Plan 08/16/23: tolerating Invega, will load with 156 mg of Invega GALVIN this pm. using lower than typical 234 mg as anticipate lower dose than 9 mg as maintenance and also on Risperdal 2 mg by mouth for now. No evidence of activation from Zoloft. 08/15/23: titrate Invega to 6 mg. Continue Risperdal in pm for now. Depakote level in am 08/18/23 with fasting metabolic labs. 08/14/23: The patient was admitted to the [facility] ([facility] health unit) on q15 min checks (behavioral with suicide precautions) for safety. The patient will participate in group, recreational, and milieu therapies and will be offered additional individual and family sessions as clinically appropriate. risks/benefits/alternatives reviewed re: current medications which she agreed to resume, including oral Invega with plan for GALVIN. pulse ox q shift. Inventory Assets Strengths: verbal, accepting of daughter's help Needs: improve coping and medication compliance Suicide Risk Level Suicide Risk Level: Moderate (q15 min suicide checks) Risk Factors Assessment : Yes Do You Have Access To A Gun?: Yes Health Problems: Yes Mental Health Diagnoses: Yes Substance Use Disorders: No Previous Attempt: No Previous Psychiatric Hospitalization: Yes Protective Factors Assessment : No Employed: No ([employer] for mental health) Supportive Family: Yes Interval History Identifying Information SASHA GREWAL is a 62-year-old F who currently lives in [place], has a history of multiple psychiatric hospitalizations for schizoaffective disorder, and was admitted on 08/13/23 15:20 on a 302 involuntary commitment for psychosis/SI. Chief Complaint "no problems." Review of Systems Sleep Information Total Hours of Sleep: 8 Sleep Comments: Risperdal scheuled at HS Meal Information Percent Meal Consumed - Breakfast: 100 Percent Meal Consumed - Lunch: 100 Percent Meal Consumed - Dinner: 100 Subjective Subjective Patient was seen & assessed and interval progress reviewed with treatment team. Patients O2 sats may be affected by black nail lao that is partial removed as otherwise asymptomatic, her care was reviewed with hospitalist contracts director yesterday afternoon. Still no wheezing/need for acute intervention. Patient reports tolerating meds well and that thoughts are improving. Behaviorally appropriate in [facility]. Daughter was updated by SW and is pleased with her progress and understands proposed plan re: her medications. Physical Exam Psychiatric Orientation: alert and oriented x 3 Apperance: appropriately dressed, appropriately groomed and + disheveled Eye Contact: + fair eye contact Motor Behavior: no abnormal motor movements (but poor dentition so tongue more prominent) Speech: normal rate/rhythm/volume of speech Affect: + constricted affect Mood: no depressed mood Thought Process: + concrete thought process Thought Content: reality based without delusions Suicidal Thoughts: denies suicidal thoughts Homicidal Thoughts: denies homicidal thoughts Hallucinations: no auditory hallucinations and no visual hallucinations Cognition: attention grossly intact and language grossly intact Estimated Intelligence: consistent with education level Insight: + limited insight Judgment: + limited judgement Vital Signs (Past 24 Hours) Last Vital Signs Temp 36.7 C 08/16/23 06:32 Pulse 83 08/16/23 06:32 Resp 16 08/16/23 06:32 BP 105/74 08/16/23 06:32 Pulse Ox 88 L 08/16/23 06:54 O2 Del Method Room Air 08/16/23 06:54 Results & Data (U) Current Inpatient Medications Current Inpatient Medications: Current Inpatient Medications Acetaminophen (Acetaminophen 325 Mg Tab) 650 mg PO Q4H PRN PRN Reason: Headache or Minor Fever Stop: 09/12/23 16:36 Last Admin: 08/13/23 19:18 Dose: 650 mg Al Hydrox/Mg Hydrox/Simethicone (Aluminum/Magnesium Susp 30 Ml Udc) 30 ml PO Q4H PRN PRN Reason: GI Upset Stop: 09/12/23 16:36 Albuterol (Albuterol Hfa 8 Gm Inhaler) 2 puffs INH Q4 PRN PRN Reason: Wheezing Stop: 09/13/23 07:59 Last Admin: 08/14/23 07:15 Dose: 2 puffs Bismuth Subsalicylate (Bismuth Subsalicylate Liqd 236 Ml) 15 ml PO PRN PRN PRN Reason: Loose Stool Stop: 09/12/23 16:36 Divalproex Sodium (Divalproex Delay Release 250 Mg Tabec) 250 mg PO BID DICK Stop: 09/13/23 08:59 Last Admin: 08/16/23 08:19 Dose: 250 mg Hydroxyzine HCl (Hydroxyzine Hcl 25 Mg Tab) 50 mg PO HSZ PRN PRN Reason: Insomnia Stop: 09/12/23 16:36 Hydroxyzine HCl (Hydroxyzine Hcl 25 Mg Tab) 25 mg PO Q4H PRN PRN Reason: Anxiety Stop: 09/12/23 16:36 Magnesium Hydroxide (Magnesium Hydroxide Susp 30 Ml Udc) 30 ml PO DAILY PRN PRN Reason: Constipation Stop: 09/12/23 16:36 Nicotine Polacrilex (Nicotine Polacrilex 2 Mg Gum) 1 piece MT PRN PRN PRN Reason: Nicotine Withdrawal Symptoms Stop: 09/12/23 16:36 Paliperidone (Paliperidone 3 Mg Tabcr) 6 mg PO QAM DICK Stop: 09/15/23 08:59 Last Admin: 08/16/23 08:18 Dose: 6 mg Risperidone (Risperidone 2 Mg Tablet) 2 mg PO HS DICK Stop: 09/12/23 21:59 Last Admin: 08/15/23 21:11 Dose: 2 mg Sertraline HCl (Sertraline Hcl 50 Mg Tablet) 50 mg PO DAILY DICK Stop: 09/13/23 08:59 Last Admin: 08/16/23 08:19 Dose: 50 mg Sodium Chloride (Sodium Chloride 0.65% Na Soln 45 Ml ([place])) 1 - 2 sprays NA PRN PRN PRN Reason: Nasal Dryness/Congestion Stop: 09/12/23 16:36 Post Discharge Appointments Primary Care Physician Name Of Family Doctor/PCP: Adelina Vaca
[2023-08-16] MEDS: PALIPERIDONE PALMITATE 156 MG/ML SYR IM ONE (13:59)
[2023-08-17] MEDS ORDERED: BENZTROPINE MESYLATE 1 MG TAB PO PRN (12:21)
[2023-08-17] MEDS: risperiDONE 1 MG TABLET PO PRN (13:24)
[2023-08-17] MEDS ORDERED: LORazepam 1 MG TAB PO PRN (16:42)
--- NOTE | 2023-08-17 16:52 | Psychiatric Progress Note ---
Date of Service August 17, 2023 Impression / Recommendations Impression 62 yo female with a hx of recurrent disorganization/psychosis associated with mood lability presented to ED after period of med noncompliance more disorganized and making suicidal statements to daughter. 08/17/2023: signed 201 with support of JASMEET. some decompensation since family meeting as confronted on behavior and activated by increase in census. She is totally inappropriate and unable to tolerate a roommate. Overall, I spent a total of 54 minutes with this case, including review of chart, direct evaluation of the patient, counseling the patient, involvement in family meeting, ordering medication, coordination with nursing, and documentation. (1) Schizoaffective disorder: Plan 08/17/23: hold Zoloft as can't exclude activation, now on 201 commitment. Add Risperdal 1 mg and Ativan prn for restlessness/agitation. Invega is covered with no prior auth and 2nd loading IM and daughter agreed to cotton picker operator for admin here prior to discharge. Inappropriate with peers so continue MNPR. 08/16/23: tolerating Invega, will load with 156 mg of Invega GALVIN this pm. using lower than typical 234 mg as anticipate lower dose than 9 mg as maintenance and also on Risperdal 2 mg by mouth for now. No evidence of activation from Zoloft. 08/15/23: titrate Invega to 6 mg. Continue Risperdal in pm for now. Depakote level in am 08/18/23 with fasting metabolic labs. 08/14/23: The patient was admitted to the [facility] ([facility] unit) on q15 min checks (behavioral with suicide precautions) for safety. The patient will participate in group, recreational, and milieu therapies and will be offered additional individual and family sessions as clinically appropriate. risks/benefits/alternatives reviewed re: current medications which she agreed to resume, including oral Invega with plan for GALVIN. pulse ox q shift. Inventory Assets Strengths: verbal, accepting of daughter's help Needs: improve coping and medication compliance Suicide Risk Level Suicide Risk Level: Moderate (q15 min suicide checks) Risk Factors Assessment : Yes Do You Have Access To A Gun?: Yes Health Problems: Yes Mental Health Diagnoses: Yes Substance Use Disorders: No Previous Attempt: No Previous Psychiatric Hospitalization: Yes Protective Factors Assessment : No Employed: No ([employer] for mental health) Supportive Family: Yes Interval History Identifying Information SASHA URI is a 62-year-old F who currently lives in [place], has a history of multiple psychiatric hospitalizations for schizoaffective disorder, and was admitted on 08/13/23 15:20 on a 302 involuntary commitment for psychosis/SI now on 201. Chief Complaint "I'm schizoaffective." inappropriate laughter Review of Systems Sleep Information Total Hours of Sleep: 6.5 Sleep Comments: Risperdal scheuled at HS Meal Information Percent Meal Consumed - Breakfast: 100 Percent Meal Consumed - Lunch: 100 Percent Meal Consumed - Dinner: 100 Subjective Subjective Patient was seen & assessed and interval progress reviewed with treatment team. participated in meeting with the patient, sw, and her daughter where she remained in agreement with medication and signed for voluntary treatment. Patient was somewhat guarded then became more defiance as daughter expressed concerns and frustration. She became overstimulated after moved out [facility] and due to multiple admissions. Has been making argumentative comments with peer she related to well for several days. She made hurtful and even racist comments to other peers and was talking to herself inappropriately and singing for attention. She did meet with her CM. Daughter described a hx of fines for trespass and making lewd gestures to annoy neighbors and a hx of aggression when lived in [facility]. Physical Exam Psychiatric Orientation: alert Apperance: appropriately dressed and appropriately groomed Eye Contact: + fair eye contact Motor Behavior: no abnormal motor movements (but poor dentition so tongue more prominent) Speech: normal rate/rhythm/volume of speech Affect: + labile affect Mood: + irritable mood Thought Process: + concrete thought process Thought Content: reality based without delusions Suicidal Thoughts: denies suicidal thoughts Homicidal Thoughts: denies homicidal thoughts Hallucinations: no auditory hallucinations and no visual hallucinations Cognition: language grossly intact; + attention not intact Estimated Intelligence: consistent with education level Insight: + limited insight Judgment: + limited judgement Vital Signs (Past 24 Hours) Last Vital Signs Temp 37 C 08/17/23 06:40 Pulse 81 08/17/23 06:42 Resp 16 08/17/23 06:40 BP 115/81 08/17/23 06:42 Pulse Ox 90 08/17/23 06:42 O2 Del Method Room Air 08/17/23 06:42 Results & Data ([facility]) Current Inpatient Medications Current Inpatient Medications: Current Inpatient Medications Acetaminophen (Acetaminophen 325 Mg Tab) 650 mg PO Q4H PRN PRN Reason: Headache or Minor Fever Stop: 09/12/23 16:36 Last Admin: 08/13/23 19:18 Dose: 650 mg Al Hydrox/Mg Hydrox/Simethicone (Aluminum/Magnesium Susp 30 Ml Udc) 30 ml PO Q4H PRN PRN Reason: GI Upset Stop: 09/12/23 16:36 Albuterol (Albuterol Hfa 8 Gm Inhaler) 2 puffs INH Q4 PRN PRN Reason: Wheezing Stop: 09/13/23 07:59 Last Admin: 08/14/23 07:15 Dose: 2 puffs Benztropine Mesylate (Benztropine Mesylate 1 Mg Tab) 1 mg PO BID PRN PRN Reason: Muscle Spasm Stop: 09/16/23 12:20 Bismuth Subsalicylate (Bismuth Subsalicylate Liqd 236 Ml) 15 ml PO PRN PRN PRN Reason: Loose Stool Stop: 09/12/23 16:36 Divalproex Sodium (Divalproex Delay Release 250 Mg Tabec) 250 mg PO BID DICK Stop: 09/13/23 08:59 Last Admin: 08/17/23 08:51 Dose: 250 mg Hydroxyzine HCl (Hydroxyzine Hcl 25 Mg Tab) 50 mg PO HSZ PRN PRN Reason: Insomnia Stop: 09/12/23 16:36 Lorazepam (Lorazepam 1 Mg Tab) 1 mg PO Q4 PRN PRN Reason: Anxiety Stop: 09/16/23 16:41 Magnesium Hydroxide (Magnesium Hydroxide Susp 30 Ml Udc) 30 ml PO DAILY PRN PRN Reason: Constipation Stop: 09/12/23 16:36 Nicotine Polacrilex (Nicotine Polacrilex 2 Mg Gum) 1 piece MT PRN PRN PRN Reason: Nicotine Withdrawal Symptoms Stop: 09/12/23 16:36 Paliperidone (Paliperidone 3 Mg Tabcr) 6 mg PO QAM DICK Stop: 09/15/23 08:59 Last Admin: 08/17/23 08:52 Dose: 6 mg Risperidone (Risperidone 2 Mg Tablet) 2 mg PO HS DICK Stop: 09/12/23 21:59 Last Admin: 03/18/24 20:57 Dose: 2 mg Risperidone (Risperidone 1 Mg Tablet) 1 mg PO Q6 PRN PRN Reason: Anxiety/Agitation Stop: 09/16/23 17:59 Last Admin: 08/17/23 13:24 Dose: 1 mg Sertraline HCl (Sertraline Hcl 50 Mg Tablet) 50 mg PO DAILY DICK Stop: 09/13/23 08:59 Last Admin: 08/17/23 08:51 Dose: 50 mg Sodium Chloride (Sodium Chloride 0.65% Na Soln 45 Ml ([place])) 1 - 2 sprays NA PRN PRN PRN Reason: Nasal Dryness/Congestion Stop: 09/12/23 16:36 Mental Health & Subst Abuse Tx Psychiatrist Name of Psychiatrist: Sadie Montiel Psychiatrist's Date Of Appointment With Psychiatric Provider: 08/30/2023 Time of Appointment with Psychiatrist: 1pm- PLEASE CANCEL OR RESCHEDULE WITHIN 24 HOURS IF NEEDED Psychiatric Appointment Comment: [address] [place] [address] Post Discharge Appointments Primary Care Physician Name Of Family Doctor/PCP: PADMAJA Vaca Primary Care Date of Future Appointment with PCP: 08/24/2023 Time of Appointment with PCP: 10:30am Provider Appointment Comment: [place] [id number] Contact Information Discharge Discharge Address: [address] [place], [place] [address] [address]
[2023-08-18 08:01] LABS: Basophils # (auto) 0.03 K/uL (0.00-0.20); Basophils % (auto) 0.3 %; Eosinophils # (auto) 0.18 K/uL (0.00-0.50); Hematocrit (blood only) 47.3 % (37.0-47.0); Hemoglobin 15.2 g/dl (12.0-16.0); Immature Granulocytes # (auto) 0.02 K/uL (0.01-0.20); Immature Granulocytes % (auto) 0.2 %; Lymphocytes % (auto) 16.8 %; Mean Corpuscular Hemoglobin 29.6 pg (25.0-34.0); Mean Corpuscular Hgb Conc 32.1 g/dL (32.0-36.0); Monocytes # (auto) 0.81 K/uL (0.11-0.59); Monocytes % (auto) 9.1 %; Neutrophils % (auto) 71.6 %; Platelet Count 187 K/uL (130-400); RDW Coefficient of Variation 12.6 % (11.5-14.5); RDW Standard Deviation 42.6 fL (36.4-46.3); Red Blood Count 5.14 M/uL (4.20-5.40); White Blood Count 8.94 K/ul (4.8-10.8)
[2023-08-18 09:01] LABS: Chol HDL Ratio 3.8 (0-5)
--- NOTE | 2023-08-18 11:35 | Psychiatric Progress Note ---
Date of Service August 18, 2023 Impression / Recommendations Impression 62 yo female with a hx of recurrent disorganization/psychosis associated with mood lability presented to ED after period of med noncompliance more disorganized and making suicidal statements to daughter. 08/18/2023: continue MNPR as behavior unpredictable yesterday, inappropriate for a roommate due to psychosis. Overall, I spent a total of 36 minutes with this case, including review of chart, direct evaluation of the patient, counseling the patient, team meeting, ordering medication after labs, and documentation. (1) Schizoaffective disorder: Plan 08/18/23: depakote level low as predicted, will switch to 750 mg of Depakote ER with plan for 1000 mg if able to swallow the larger pills as once a day administration would be ideal. Continue oral Invega pending 2nd loading dose tomorrow. 08/17/23: hold Zoloft as can't exclude activation, now on 201 commitment. Add Risperdal 1 mg and Ativan prn for restlessness/agitation. Invega is covered with no prior auth and 2nd loading IM and daughter agreed to pickle water pump operator for admin here prior to discharge. Inappropriate with peers so continue MNPR. 08/16/23: tolerating Invega, will load with 156 mg of Invega GALVIN this pm. using lower than typical 234 mg as anticipate lower dose than 9 mg as maintenance and also on Risperdal 2 mg by mouth for now. No evidence of activation from Zoloft. 08/15/23: titrate Invega to 6 mg. Continue Risperdal in pm for now. Depakote level in am 08/18/23 with fasting metabolic labs. 08/14/23: The patient was admitted to the [facility] ([facility] mental health unit) on q15 min checks (behavioral with suicide precautions) for safety. The patient will participate in group, recreational, and milieu therapies and will be offered additional individual and family sessions as clinically appropriate. risks/benefits/alternatives reviewed re: current medications which she agreed to resume, including oral Invega with plan for GAVLIN. pulse ox q shift. Inventory Assets Strengths: verbal, accepting of daughter's help Needs: improve coping and medication compliance Suicide Risk Level Suicide Risk Level: Moderate (q15 min suicide checks) Risk Factors Assessment : Yes Do You Have Access To A Gun?: Yes Health Problems: Yes Mental Health Diagnoses: Yes Substance Use Disorders: No Previous Attempt: No Previous Psychiatric Hospitalization: Yes Protective Factors Assessment : No Employed: No ([employer] for mental health) Supportive Family: Yes Interval History Identifying Information SASHA GREWAL is a 62-year-old F who currently lives in [place], has a history of multiple psychiatric hospitalizations for schizoaffective disorder, and was admitted on 08/13/23 15:20 on a 302 involuntary commitment for psychosis/SI which was converted to a 201 on 08/18/23. Chief Complaint "yesterday was a lot." Review of Systems Sleep Information Total Hours of Sleep: 6 Sleep Comments: Risperdal scheuled at HS Meal Information Percent Meal Consumed - Breakfast: 100 Percent Meal Consumed - Lunch: 100 Percent Meal Consumed - Dinner: 100 Subjective Subjective Patient was seen & assessed and interval progress reviewed with treatment team. Patient was calmer last pm in that not having inappropriate verbal outbursts/comments, received prn Risperdal. Patient is more reality based this am, doesn't appear to be responding to internal stimuli. Confirms that she agreed to sign papers to explore [facility] options with her CM. Physical Exam Psychiatric Orientation: alert Apperance: appropriately dressed and appropriately groomed Eye Contact: + fair eye contact Motor Behavior: no abnormal motor movements (but poor dentition so tongue more prominent) Speech: normal rate/rhythm/volume of speech Affect: + constricted affect Mood: no depressed mood Thought Process: + concrete thought process Thought Content: reality based without delusions (but suspect paranoid based on behavior yesterday) Suicidal Thoughts: denies suicidal thoughts Homicidal Thoughts: denies homicidal thoughts Hallucinations: no auditory hallucinations and no visual hallucinations Cognition: language grossly intact; + attention not intact Estimated Intelligence: consistent with education level Insight: + limited insight Judgment: + limited judgement Vital Signs (Past 24 Hours) Last Vital Signs Temp 36.2 C L 08/18/23 06:00 Pulse 101 H 08/18/23 06:51 Resp 16 08/18/23 06:00 BP 110/79 08/18/23 06:51 Pulse Ox 89 L 08/17/23 11:30 O2 Del Method Room Air 08/17/23 11:30 Results & Data (U) Laboratory Results Laboratory Results - last 24 hr 08/18/23 07:33 WBC 8.94 RBC 5.14 Hgb 15.2 Hct 47.3 H MCV 92.0 MCH 29.6 MCHC 32.1 RDW Std Deviation 42.6 RDW Coeff of Merissa 12.6 Plt Count 187 MPV 10.0 Immature Gran % (Auto) 0.2 Neut % (Auto) 71.6 Lymph % (Auto) 16.8 [place] % (Auto) 9.1 Eos % (Auto) 2.0 Baso % (Auto) 0.3 Neut # (Auto) 6.40 Lymph # (Auto) 1.50 [place] # (Auto) 0.81 H Eos # (Auto) 0.18 Baso # (Auto) 0.03 Immature Gran # (Auto) 0.02 Glucose 98 Triglycerides 183 H Cholesterol 206 H LDL Cholesterol, Calc 115 VLDL Cholesterol, Calc 37 H HDL Cholesterol 54 Cholesterol/HDL Ratio 3.8 Valproic Acid 35 L Current Inpatient Medications Current Inpatient Medications: Current Inpatient Medications Acetaminophen (Acetaminophen 325 Mg Tab) 650 mg PO Q4H PRN PRN Reason: Headache or Minor Fever Stop: 09/12/23 16:36 Last Admin: 08/13/23 19:18 Dose: 650 mg Al Hydrox/Mg Hydrox/Simethicone (Aluminum/Magnesium Susp 30 Ml Udc) 30 ml PO Q4H PRN PRN Reason: GI Upset Stop: 09/12/23 16:36 Albuterol (Albuterol Hfa 8 Gm Inhaler) 2 puffs INH Q4 PRN PRN Reason: Wheezing Stop: 09/13/23 07:59 Last Admin: 08/14/23 07:15 Dose: 2 puffs Benztropine Mesylate (Benztropine Mesylate 1 Mg Tab) 1 mg PO BID PRN PRN Reason: Muscle Spasm Stop: 09/16/23 12:20 Bismuth Subsalicylate (Bismuth Subsalicylate Liqd 236 Ml) 15 ml PO PRN PRN PRN Reason: Loose Stool Stop: 09/12/23 16:36 Divalproex Sodium (Divalproex Extended Release 250 Mg Tabcr) 750 mg PO HS DICK Stop: 09/17/23 21:59 Hydroxyzine HCl (Hydroxyzine Hcl 25 Mg Tab) 50 mg PO HSZ PRN PRN Reason: Insomnia Stop: 09/12/23 16:36 Lorazepam (Lorazepam 1 Mg Tab) 1 mg PO Q4 PRN PRN Reason: Anxiety Stop: 09/16/23 16:41 Magnesium Hydroxide (Magnesium Hydroxide Susp 30 Ml Udc) 30 ml PO DAILY PRN PRN Reason: Constipation Stop: 09/12/23 16:36 Nicotine Polacrilex (Nicotine Polacrilex 2 Mg Gum) 1 piece MT PRN PRN PRN Reason: Nicotine Withdrawal Symptoms Stop: 09/12/23 16:36 Paliperidone (Paliperidone 3 Mg Tabcr) 6 mg PO QAM DICK Stop: 09/15/23 08:59 Last Admin: 08/18/23 08:46 Dose: 6 mg Risperidone (Risperidone 2 Mg Tablet) 2 mg PO HS DICK Stop: 09/12/23 21:59 Last Admin: 08/17/23 21:24 Dose: 2 mg Risperidone (Risperidone 1 Mg Tablet) 1 mg PO Q6 PRN PRN Reason: Anxiety/Agitation Stop: 09/16/23 17:59 Last Admin: 08/17/23 13:24 Dose: 1 mg Sertraline HCl (Sertraline Hcl 50 Mg Tablet) 50 mg PO DAILY DICK Stop: 09/13/23 08:59 Last Admin: 08/17/23 08:51 Dose: 50 mg Sodium Chloride (Sodium Chloride 0.65% Na Soln 45 Ml ([place])) 1 - 2 sprays NA PRN PRN PRN Reason: Nasal Dryness/Congestion Stop: 09/12/23 16:36 Mental Health & Subst Abuse Tx Psychiatrist Name of Psychiatrist: Sadie Montiel Psychiatrist's Date Of Appointment With Psychiatric Provider: 08/30/2023 Time of Appointment with Psychiatrist: 1pm- PLEASE CANCEL OR RESCHEDULE WITHIN 24 HOURS IF NEEDED Psychiatric Appointment Comment: [address] [place] [address] Fiberglass Dowel Drawing Operator Name of Fiberglass Dowel Drawing Operator: YESENIA Zimmerman Phone Number for Fiberglass Dowel Drawing Operator: [phone] Date of Appointment with Fiberglass Dowel Drawing Operator: 09/24/23 Time of Appointment with Fiberglass Dowel Drawing Operator: 9am Case Management Appointment Comment: will come to your home Post Discharge Appointments Primary Care Physician Name Of Family Doctor/PCP: PADMAJA Vaca Primary Care Date of Future Appointment with PCP: 08/24/2023 Time of Appointment with PCP: 10:30am Provider Appointment Comment: [address], [place] [address] Contact Information Discharge Discharge Address: [facility] [place] [address]
[2023-08-18] MEDS: DIVALPROEX EXTENDED RELEASE 250 MG TABCR PO SCH (21:08)
[2023-08-19] MEDS ORDERED: LORazepam 0.5 MG TAB PO PRN (10:07)
[2023-08-19] MEDS: PALIPERIDONE PALMITATE 156 MG/ML SYR IM ONE (10:53)
--- NOTE | 2023-08-19 13:35 | Psychiatric Progress Note ---
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 08/19/2023: continue MNPR, inappropriate for a roommate due to psychosis. Overall, I spent a total of 38 minutes with this case, including review of chart, direct evaluation of the patient, counseling the patient, coordination with SW, ordering medication, and documentation. (1) Schizoaffective disorder: Plan 08/19/23: completed 2nd Invega injection, will speed up taper of oral antipsychotics given orthostasis (d/c Invega, taper Risperdal to 1 mg). Start shifting dose time of Depakote as patient would prefer am dosing after discharge. Will hold titration of Depakote today given other changes and asymptomatic orthostasis. 08/18/23: depakote level low as predicted, will switch to 750 mg of Depakote ER with plan for 1000 mg if able to swallow the larger pills as once a day administration would be ideal. Continue oral Invega pending 2nd loading dose tomorrow. 08/17/23: hold Zoloft as can't exclude activation, now on 201 commitment. Add Risperdal 1 mg and Ativan prn for restlessness/agitation. Invega is covered with no prior auth and 2nd loading IM and daughter agreed to pickling tank operator for admin here prior to discharge. Inappropriate with peers so continue MNPR. 08/16/23: tolerating Invega, will load with 156 mg of Invega GALVIN this pm. using lower than typical 234 mg as anticipate lower dose than 9 mg as maintenance and also on Risperdal 2 mg by mouth for now. No evidence of activation from Zoloft. 08/15/23: titrate Invega to 6 mg. Continue Risperdal in pm for now. Depakote level in am 08/18/23 with fasting metabolic labs. 08/14/23: The patient was admitted to the [facility] ([facility] mental health unit) on q15 min checks (behavioral with suicide precautions) for safety. The patient will participate in group, recreational, and milieu therapies and will be offered additional individual and family sessions as clinically appropriate. risks/benefits/alternatives reviewed re: current medications which she agreed to resume, including oral Invega with plan for GALVIN. pulse ox q shift. Inventory Assets Strengths: verbal, accepting of daughter's help Needs: improve coping and medication compliance Suicide Risk Level Suicide Risk Level: Moderate (q15 min suicide checks) Risk Factors Assessment : Yes Do You Have Access To A Gun?: Yes Health Problems: Yes Mental Health Diagnoses: Yes Substance Use Disorders: No Previous Attempt: No Previous Psychiatric Hospitalization: Yes Protective Factors Assessment : No Employed: No ([employer] for mental health) Supportive Family: Yes Interval History Identifying Information SASHA GREWAL is a 62-year-old F who currently lives in [place], has a history of multiple psychiatric hospitalizations for schizoaffective disorder, and was admitted on 08/13/23 15:20 on a 302 involuntary commitment for psychosis/SI which was converted to a 201 on 08/18/23. Chief Complaint orthostasis (asymptomatic) Review of Systems Sleep Information Total Hours of Sleep: 6 Sleep Comments: Risperdal scheuled at HS Meal Information Percent Meal Consumed - Breakfast: 100 Percent Meal Consumed - Lunch: 100 Percent Meal Consumed - Dinner: 100 Subjective Subjective Patient was seen & assessed and interval progress reviewed with nursing and social work. The patient's gait remains steady, denies dizziness. Patient O2 sats improved mid day. No wheezing and declines prn inhaler. She is more contained in interactions with peers and does not appear to be responding to internal stimuli as often. She cooperated with 2nd Invega injection. States she is able to swallow Depakote "no problem." Physical Exam Psychiatric Orientation: alert Apperance: appropriately dressed and appropriately groomed Eye Contact: + fair eye contact Motor Behavior: no abnormal motor movements (but poor dentition so tongue more prominent) Speech: normal rate/rhythm/volume of speech Affect: + constricted affect Mood: no depressed mood and no irritable mood Thought Process: + concrete thought process Thought Content: reality based without delusions (but suspect paranoid) Suicidal Thoughts: denies suicidal thoughts Homicidal Thoughts: denies homicidal thoughts Hallucinations: no auditory hallucinations and no visual hallucinations Cognition: language grossly intact; + attention not intact Estimated Intelligence: consistent with education level Insight: + limited insight Judgment: + limited judgement Vital Signs (Past 24 Hours) Last Vital Signs Temp 36.2 C L 08/19/23 06:00 Pulse 95 H 08/19/23 09:50 Resp 18 08/19/23 09:50 BP 80/59 L 08/19/23 09:50 Pulse Ox 92 08/19/23 09:50 O2 Del Method Room Air 08/19/23 09:50 Results & Data ([facility]) Current Inpatient Medications Current Inpatient Medications: Current Inpatient Medications Acetaminophen (Acetaminophen 325 Mg Tab) 650 mg PO Q4H PRN PRN Reason: Headache or Minor Fever Stop: 09/12/23 16:36 Last Admin: 08/13/23 19:18 Dose: 650 mg Al Hydrox/Mg Hydrox/Simethicone (Aluminum/Magnesium Susp 30 Ml Udc) 30 ml PO Q4H PRN PRN Reason: GI Upset Stop: 09/12/23 16:36 Albuterol (Albuterol Hfa 8 Gm Inhaler) 2 puffs INH Q4 PRN PRN Reason: Wheezing Stop: 09/13/23 07:59 Last Admin: 08/14/23 07:15 Dose: 2 puffs Benztropine Mesylate (Benztropine Mesylate 1 Mg Tab) 1 mg PO BID PRN PRN Reason: Muscle Spasm Stop: 09/16/23 12:20 Bismuth Subsalicylate (Bismuth Subsalicylate Liqd 236 Ml) 15 ml PO PRN PRN PRN Reason: Loose Stool Stop: 09/12/23 16:36 Divalproex Sodium (Divalproex Extended Release 250 Mg Tabcr) 750 mg PO HS DICK Stop: 09/17/23 21:59 Last Admin: 08/18/23 21:08 Dose: 750 mg Hydroxyzine HCl (Hydroxyzine Hcl 25 Mg Tab) 50 mg PO HSZ PRN PRN Reason: Insomnia Stop: 09/12/23 16:36 Lorazepam (Lorazepam 0.5 Mg Tab) 0.5 mg PO Q4 PRN PRN Reason: Anxiety Stop: 09/16/23 16:41 Magnesium Hydroxide (Magnesium Hydroxide Susp 30 Ml Udc) 30 ml PO DAILY PRN PRN Reason: Constipation Stop: 09/12/23 16:36 Nicotine Polacrilex (Nicotine Polacrilex 2 Mg Gum) 1 piece MT PRN PRN PRN Reason: Nicotine Withdrawal Symptoms Stop: 09/12/23 16:36 Risperidone (Risperidone 1 Mg Tablet) 1 mg PO Q6 PRN PRN Reason: Anxiety/Agitation Stop: 09/16/23 17:59 Last Admin: 08/17/23 13:24 Dose: 1 mg Risperidone (Risperidone 1 Mg Tablet) 1 mg PO HS DICK Stop: 09/18/23 21:59 Sodium Chloride (Sodium Chloride 0.65% Na Soln 45 Ml ([place])) 1 - 2 sprays NA PRN PRN PRN Reason: Nasal Dryness/Congestion Stop: 09/12/23 16:36 Mental Health & Subst Abuse Tx Psychiatrist Name of Psychiatrist: Sadie Montiel Psychiatrist's Date Of Appointment With Psychiatric Provider: 08/30/2023 Time of Appointment with Psychiatrist: 1pm- PLEASE CANCEL OR RESCHEDULE WITHIN 24 HOURS IF NEEDED Psychiatric Appointment Comment: [address] [place] [address] Product Architect Name of Product Architect: YESENIA Zimmerman Phone Number for Product Architect: [phone] Date of Appointment with Product Architect: 09/24/23 Time of Appointment with Product Architect: 9am Case Management Appointment Comment: will come to your home Post Discharge Appointments Primary Care Physician Name Of Family Doctor/PCP: PADMAJA [facility] Date of Future Appointment with PCP: 08/24/2023 Time of Appointment with PCP: 10:30am Provider Appointment Comment: [place] [id number] Contact Information Discharge Discharge Address: [address] [place] [address] YAHAIRA Collins [address]
[2023-08-19] MEDS: risperiDONE 1 MG TABLET PO SCH (17:13)
[2023-08-19] MEDS: DIVALPROEX EXTENDED RELEASE 250 MG TABCR PO SCH (17:14)
[2023-08-19] MEDS ORDERED: risperiDONE 1 MG TABLET PO SCH (22:00)
[2023-08-20] MEDS ORDERED: PALIPERIDONE 3 MG TABCR PO SCH (09:00)
--- NOTE | 2023-08-20 11:44 | Psychiatric Progress Note ---
Date of Service August 20, 2023 Impression / Recommendations Impression 62 yo female with a hx of recurrent disorganization/psychosis associated with mood lability presented to ED after period of med noncompliance more disorganized and making suicidal statements to daughter. 08/20/2023: continue MNPR, inappropriate for a roommate as although psychosis improved, easily overstimulated. I believe she would decompensate readily outside of the structure of the hospital. Overall, I spent a total of 35 minutes with this case, including review of chart, direct evaluation of the patient, counseling the patient, coordination with treatment team, ordering medication, and documentation. (1) Schizoaffective disorder: Plan 08/20/23: shifting Depakote ER to 1000 mg po qam with f/u level on 08/24/23 (Depakote ER so 24 hr trough ideal), taper Risperdal in 2-3 more days at discretion of treating psychiatrist on unit. Patient had acting out after last family visit so staff to contact to retry visit to determine ongoing stay. 08/19/23: completed 2nd Invega injection, will speed up taper of oral antipsychotics given orthostasis (d/c Invega, taper Risperdal to 1 mg). Start shifting dose time of Depakote as patient would prefer am dosing after discharge. Will hold titration of Depakote today given other changes and asymptomatic orthostasis. 08/18/23: depakote level low as predicted, will switch to 750 mg of Depakote ER with plan for 1000 mg if able to swallow the larger pills as once a day administration would be ideal. Continue oral Invega pending 2nd loading dose tomorrow. 08/17/23: hold Zoloft as can't exclude activation, now on 201 commitment. Add Risperdal 1 mg and Ativan prn for restlessness/agitation. Invega is covered with no prior auth and 2nd loading IM and daughter agreed to moss picker for admin here prior to discharge. Inappropriate with peers so continue MNPR. 08/16/23: tolerating Invega, will load with 156 mg of Invega GALVIN this pm. using lower than typical 234 mg as anticipate lower dose than 9 mg as maintenance and also on Risperdal 2 mg by mouth for now. No evidence of activation from Zoloft. 08/15/23: titrate Invega to 6 mg. Continue Risperdal in pm for now. Depakote level in am 08/18/23 with fasting metabolic labs. 08/14/23: The patient was admitted to the [facility] ([facility] mental health unit) on q15 min checks (behavioral with suicide precautions) for safety. The patient will participate in group, recreational, and milieu therapies and will be offered additional individual and family sessions as clinically appropriate. risks/benefits/alternatives reviewed re: current medications which she agreed to resume, including oral Invega with plan for GALVIN. pulse ox q shift. Inventory Assets Strengths: verbal, accepting of daughter's help Needs: improve coping and medication compliance Suicide Risk Level Suicide Risk Level: Moderate (q15 min suicide checks) Risk Factors Assessment : Yes Do You Have Access To A Gun?: Yes Health Problems: Yes Mental Health Diagnoses: Yes Substance Use Disorders: No Previous Attempt: No Previous Psychiatric Hospitalization: Yes Protective Factors Assessment : No Employed: No ([employer] for mental health) Supportive Family: Yes Interval History Identifying Information SASHA GREWAL is a 62-year-old F who currently lives in [place], has a history of multiple psychiatric hospitalizations for schizoaffective disorder, and was admitted on 08/13/23 15:20 on a 302 involuntary commitment for psychosis /SI which was converted to a 201 on 08/18/23. Chief Complaint "I actually learn things in group." Review of Systems Sleep Information Total Hours of Sleep: 6.5 Sleep Comments: Risperdal scheuled at HS Meal Information Percent Meal Consumed - Breakfast: 100 Percent Meal Consumed - Lunch: 100 Percent Meal Consumed - Dinner: 100 Subjective Subjective Patient was seen & assessed and interval progress reviewed with treatment team. Cooperative with unit routines. Attending more groups, now saying would like to be more social when she leaves. BP has improved. has not appeared to be responding to internal stimuli. Physical Exam Psychiatric Orientation: alert Apperance: appropriately dressed and appropriately groomed Eye Contact: + fair eye contact Motor Behavior: no abnormal motor movements Speech: normal rate/rhythm/volume of speech Affect: + constricted affect Mood: no depressed mood Thought Process: + concrete thought process Thought Content: + preoccupation Suicidal Thoughts: denies suicidal thoughts Homicidal Thoughts: denies homicidal thoughts Hallucinations: no auditory hallucinations and no visual hallucinations Cognition: attention grossly intact and language grossly intact Estimated Intelligence: consistent with education level Insight: + limited insight Judgment: + limited judgement Vital Signs (Past 24 Hours) Last Vital Signs Temp 36.7 C 08/20/23 06:30 Pulse 93 H 08/20/23 06:31 Resp 16 08/20/23 06:30 BP 105/75 08/20/23 06:31 Pulse Ox 92 08/19/23 09:50 O2 Del Method Room Air 08/19/23 09:50 Results & Data ([facility]) Current Inpatient Medications Current Inpatient Medications: Current Inpatient Medications Acetaminophen (Acetaminophen 325 Mg Tab) 650 mg PO Q4H PRN PRN Reason: Headache or Minor Fever Stop: 09/12/23 16:36 Last Admin: 08/13/23 19:18 Dose: 650 mg Al Hydrox/Mg Hydrox/Simethicone (Aluminum/Magnesium Susp 30 Ml Udc) 30 ml PO Q4H PRN PRN Reason: GI Upset Stop: 09/12/23 16:36 Albuterol (Albuterol Hfa 8 Gm Inhaler) 2 puffs INH Q4 PRN PRN Reason: Wheezing Stop: 09/13/23 07:59 Last Admin: 08/14/23 07:15 Dose: 2 puffs Benztropine Mesylate (Benztropine Mesylate 1 Mg Tab) 1 mg PO BID PRN PRN Reason: Muscle Spasm Stop: 09/16/23 12:20 Bismuth Subsalicylate (Bismuth Subsalicylate Liqd 236 Ml) 15 ml PO PRN PRN PRN Reason: Loose Stool Stop: 09/12/23 16:36 Divalproex Sodium (Divalproex Extended Release 500 Mg Tab) 1,000 mg PO DAILYBL DICK Stop: 09/19/23 11:59 Hydroxyzine HCl (Hydroxyzine Hcl 25 Mg Tab) 50 mg PO HSZ PRN PRN Reason: Insomnia Stop: 09/12/23 16:36 Lorazepam (Lorazepam 0.5 Mg Tab) 0.5 mg PO Q4 PRN PRN Reason: Anxiety Stop: 09/16/23 16:41 Magnesium Hydroxide (Magnesium Hydroxide Susp 30 Ml Udc) 30 ml PO DAILY PRN PRN Reason: Constipation Stop: 09/12/23 16:36 Nicotine Polacrilex (Nicotine Polacrilex 2 Mg Gum) 1 piece MT PRN PRN PRN Reason: Nicotine Withdrawal Symptoms Stop: 09/12/23 16:36 Risperidone (Risperidone 1 Mg Tablet) 1 mg PO Q6 PRN PRN Reason: Anxiety/Agitation Stop: 09/16/23 17:59 Last Admin: 08/17/23 13:24 Dose: 1 mg Risperidone (Risperidone 1 Mg Tablet) 1 mg PO DAILYBD DICK Stop: 09/18/23 17:14 Last Admin: 08/19/23 17:13 Dose: 1 mg Sodium Chloride (Sodium Chloride 0.65% Na Soln 45 Ml ([place])) 1 - 2 sprays NA PRN PRN PRN Reason: Nasal Dryness/Congestion Stop: 09/12/23 16:36 Mental Health & Subst Abuse Tx Psychiatrist Name of Psychiatrist: Sadie Montiel Psychiatrist's Date Of Appointment With Psychiatric Provider: 08/30/2023 Time of Appointment with Psychiatrist: 1pm- PLEASE CANCEL OR RESCHEDULE WITHIN 24 HOURS IF NEEDED Psychiatric Appointment Comment: [address] [place] [address] Induction Coordination Engineer Name of Induction Coordination Engineer: YESENIA Zimmerman Phone Number for Induction Coordination Engineer: [phone] Date of Appointment with Induction Coordination Engineer: 09/24/23 Time of Appointment with Induction Coordination Engineer: 9am Case Management Appointment Comment: will come to your home Post Discharge Appointments Primary Care Physician Name Of Family Doctor/PCP: PADMAJA [facility] Date of Future Appointment with PCP: 08/24/2023 Time of Appointment with PCP: 10:30am Provider Appointment Comment: [address] [place], [place] [address] [address] Contact Information Discharge Discharge [address]: [address] [place], [place] [address] [address]
[2023-08-20] MEDS: DIVALPROEX EXTENDED RELEASE 500 MG TAB PO SCH (13:08)
[2023-08-21] MEDS: DIVALPROEX EXTENDED RELEASE 500 MG TAB PO SCH (08:47)
--- NOTE | 2023-08-21 16:32 | Psychiatric Progress Note ---
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 08/21/2023: Patient still is showing some mild paranoia but overall is showing some slow improvement. e are seeing her attending groups more often. However, I agree with Dr. Bocanegra and believe the patient would decompensate readily outside of the structure of the hospital. Overall, I spent a total of 36 minutes with this case including meeting with the patient, reviewing the chart, reviewing the checkout notes from Dr. Encinas, nursing report, and documentation. (1) Schizoaffective disorder: Plan 08/21/23: We are going to continue with her current level of observation and precautions. Depakote level is scheduled for Wednesday. We have a family visit scheduled tomorrow and we will see how that goes. I encouraged the patient to continue to go to groups and activities and try to participate as well as she can. 08/20/23: shifting Depakote ER to 1000 mg po qam with f/u level on 08/24/23 (Depakote ER so 24 hr trough ideal), taper Risperdal in 2-3 more days at discretion of treating psychiatrist on unit. Patient had acting out after last family visit so staff to contact to retry visit to determine ongoing stay. 08/19/23: completed 2nd Invega injection, will speed up taper of oral antipsychotics given orthostasis (d/c Invega, taper Risperdal to 1 mg). Start shifting dose time of Depakote as patient would prefer am dosing after discharge. Will hold titration of Depakote today given other changes and asymptomatic orthostasis. 08/18/23: depakote level low as predicted, will switch to 750 mg of Depakote ER with plan for 1000 mg if able to swallow the larger pills as once a day administration would be ideal. Continue oral Invega pending 2nd loading dose tomorrow. 08/17/23: hold Zoloft as can't exclude activation, now on 201 commitment. Add Risperdal 1 mg and Ativan prn for restlessness/agitation. Invega is covered with no prior auth and 2nd loading IM and daughter agreed to sheepskin pickler for admin here prior to discharge. Inappropriate with peers so continue MNPR. 08/16/23: tolerating Invega, will load with 156 mg of Invega GALVIN this pm. using lower than typical 234 mg as anticipate lower dose than 9 mg as maintenance and also on Risperdal 2 mg by mouth for now. No evidence of activation from Zoloft. 08/15/23: titrate Invega to 6 mg. Continue Risperdal in pm for now. Depakote level in am 08/18/23 with fasting metabolic labs. 08/14/23: The patient was admitted to the [facility] ([facility] mental health unit) on q15 min checks (behavioral with suicide precautions) for safety. The patient will participate in group, recreational, and milieu therapies and will be offered additional individual and family sessions as clinically appropriate. risks/benefits/alternatives reviewed re: current medications which she agreed to resume, including oral Invega with plan for GALVIN. pulse ox q shift. Inventory Assets Strengths: verbal, accepting of daughter's help Needs: improve coping and medication compliance Suicide Risk Level Suicide Risk Level: Moderate (q15 min suicide checks) Risk Factors Assessment : Yes Do You Have Access To A Gun?: Yes Health Problems: Yes Mental Health Diagnoses: Yes Substance Use Disorders: No Previous Attempt: No Previous Psychiatric Hospitalization: Yes Protective Factors Assessment : No Employed: No ([employer] for mental health) Supportive Family: Yes Interval History Identifying Information SASHA GREWAL is a 62-year-old F who currently lives in [place], has a history of multiple psychiatric hospitalizations for schizoaffective disorder, and was admitted on 08/13/23 15:20 on a 302 involuntary commitment for psychosis/SI which was converted to a 201 on 08/18/23. Chief Complaint "To get help and to feel better." Review of Systems Sleep Information Total Hours of Sleep: 6.5 Sleep Comments: Risperdal scheuled at HS Meal Information Percent Meal Consumed - Breakfast: 100 Percent Meal Consumed - Lunch: 100 Percent Meal Consumed - Dinner: 100 Subjective Subjective Today I met with the patient and reviewed her chart. We also had a multidisciplinary meeting to discuss her care. I also reviewed the checkout notes from Dr. Encinas. Patient has a history of schizoaffective disorder with poor adherence to medication. She had a bad family meeting on Wednesday that caused her to have a meltdown and become very irritable. However, the last couple of days she has been improving. We are trying to set up a family meeting tomorrow to see how her interactions go with them. Patient says that she is tolerating her Depakote and she is due for a Depakote level on August 23. Yesterday, she had her first dose of 1000 mg of Depakote ER. When I met with the patient today, she says that she has been doing pretty well but has been somewhat depressed. She said that in the meeting the other day, she had difficulty communicating with her daughter. Today, her mood is described as "all right," but she also feels somewhat "rushed." She is doing okay with the other patients. She slept well. Her appetite is described as normal. She denies suicidal ideation, homicidal thoughts, or any hallucinations. Physical Exam Psychiatric Patient was alert and cooperative. Eye contact was good. She was clean and relatively well-groomed. Speech was normal. Mood was described as "alright but rushed." Affect was somewhat restricted. Thought process was logical and goal- directed. There was no evidence of any hallucinations or delusions. Patient denied any suicidal or homicidal thoughts. Memory was good. No abnormal movements were seen. Gait was normal. Insight and judgment are impaired. Vital Signs (Past 24 Hours) Last Vital Signs Temp 36.4 C L 08/21/23 06:38 Pulse 83 08/21/23 06:39 Resp 16 08/21/23 06:38 BP 113/76 08/21/23 06:39 Pulse Ox 93 08/21/23 11:30 O2 Del Method Room Air 08/21/23 11:30 Results & Data ([facility]) Current Inpatient Medications Current Inpatient Medications: Current Inpatient Medications Acetaminophen (Acetaminophen 325 Mg Tab) 650 mg PO Q4H PRN PRN Reason: Headache or Minor Fever Stop: 09/12/23 16:36 Last Admin: 08/13/23 19:18 Dose: 650 mg Al Hydrox/Mg Hydrox/Simethicone (Aluminum/Magnesium Susp 30 Ml Udc) 30 ml PO Q4H PRN PRN Reason: GI Upset Stop: 09/12/23 16:36 Albuterol (Albuterol Hfa 8 Gm Inhaler) 2 puffs INH Q4 PRN PRN Reason: Wheezing Stop: 09/13/23 07:59 Last Admin: 08/20/23 14:41 Dose: 2 puffs Benztropine Mesylate (Benztropine Mesylate 1 Mg Tab) 1 mg PO BID PRN PRN Reason: Muscle Spasm Stop: 09/16/23 12:20 Bismuth Subsalicylate (Bismuth Subsalicylate Liqd 236 Ml) 15 ml PO PRN PRN PRN Reason: Loose Stool Stop: 09/12/23 16:36 Divalproex Sodium (Divalproex Extended Release 500 Mg Tab) 1,000 mg PO DAILY DICK Stop: 09/20/23 08:59 Last Admin: 08/21/23 08:47 Dose: 1,000 mg Hydroxyzine HCl (Hydroxyzine Hcl 25 Mg Tab) 50 mg PO HSZ PRN PRN Reason: Insomnia Stop: 09/12/23 16:36 Lorazepam (Lorazepam 0.5 Mg Tab) 0.5 mg PO Q4 PRN PRN Reason: Anxiety Stop: 09/16/23 16:41 Magnesium Hydroxide (Magnesium Hydroxide Susp 30 Ml Udc) 30 ml PO DAILY PRN PRN Reason: Constipation Stop: 09/12/23 16:36 Nicotine Polacrilex (Nicotine Polacrilex 2 Mg Gum) 1 piece MT PRN PRN PRN Reason: Nicotine Withdrawal Symptoms Stop: 09/12/23 16:36 Risperidone (Risperidone 1 Mg Tablet) 1 mg PO Q6 PRN PRN Reason: Anxiety/Agitation Stop: 09/16/23 17:59 Last Admin: 08/17/23 13:24 Dose: 1 mg Risperidone (Risperidone 1 Mg Tablet) 1 mg PO DAILYBD DICK Stop: 09/18/23 17:14 Last Admin: 08/20/23 17:07 Dose: 1 mg Sodium Chloride (Sodium Chloride 0.65% Na Soln 45 Ml ([place])) 1 - 2 sprays NA PRN PRN PRN Reason: Nasal Dryness/Congestion Stop: 09/12/23 16:36 Mental Health & Subst Abuse Tx Psychiatrist Name of Psychiatrist: Sadie Montiel Psychiatrist's Date Of Appointment With Psychiatric Provider: 08/30/2023 Time of Appointment with Psychiatrist: 1pm- PLEASE CANCEL OR RESCHEDULE WITHIN 24 HOURS IF NEEDED Psychiatric Appointment Comment: [address] [place] [address] Community Services Officer Name of Community Services Officer: YESENIA Jeronimogh Erasmo Phone Number for Community Services Officer: [phone] Date of Appointment with Community Services Officer: 08/26/23 Time of Appointment with Community Services Officer: 9am Case Management Appointment Comment: will come to your home Post Discharge Appointments Primary Care Physician Name Of Family Doctor/PCP: PADMAJA [facility] Date of Future Appointment with PCP: 08/31/2023 Time of Appointment with PCP: 11am Provider Appointment Comment: [address] [facility] [address], [place] [address] Contact Information Discharge Discharge Address: [address] [place], [place] [address] [address]
--- NOTE | 2023-08-22 10:52 | Psychiatric Progress Note ---
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 08/22/2023: Patient still is showing some mild paranoia but overall is continuing to show slow improvement. The family visit will be important today because the meeting last Wednesday did not go well at all. I still agree with Dr. Bocanegra and believe the patient would decompensate readily outside of the structure of the hospital. Overall, I spent a total of 35 minutes with this case including meeting with the patient, reviewing the chart, reviewing the checkout notes from Dr. Encinas, nursing report, and documentation. (1) Schizoaffective disorder: Plan 08/22/23: We will continue with our current level of observation and precautions. Now that she has Invega Sustenna in her system, I lowered the risperidone to 0.5 mg for a couple more days and then it will discontinue. I encouraged the patient to keep going to groups and activities. We will see how the family visit goes today. We still have a Depakote level scheduled for Wednesday morning, but my hope is to get her out of the hospital very soon. 08/21/23: We are going to continue with her current level of observation and precautions. Depakote level is scheduled for Wednesday. We have a family visit scheduled tomorrow and we will see how that goes. I encouraged the patient to continue to go to groups and activities and try to participate as well as she can. 08/20/23: shifting Depakote ER to 1000 mg po qam with f/u level on 08/24/23 (Depakote ER so 24 hr trough ideal), taper Risperdal in 2-3 more days at discretion of treating psychiatrist on unit. Patient had acting out after last family visit so staff to contact to retry visit to determine ongoing stay. 08/19/23: completed 2nd Invega injection, will speed up taper of oral antipsychotics given orthostasis (d/c Invega, taper Risperdal to 1 mg). Start shifting dose time of Depakote as patient would prefer am dosing after discharge. Will hold titration of Depakote today given other changes and asymptomatic orthostasis. 08/18/23: depakote level low as predicted, will switch to 750 mg of Depakote ER with plan for 1000 mg if able to swallow the larger pills as once a day administration would be ideal. Continue oral Invega pending 2nd loading dose tomorrow. 08/17/23: hold Zoloft as can't exclude activation, now on 201 commitment. Add Risperdal 1 mg and Ativan prn for restlessness/agitation. Invega is covered with no prior auth and 2nd loading IM and daughter agreed to supervisor opening and picking for admin here prior to discharge. Inappropriate with peers so continue MNPR. 08/16/23: tolerating Invega, will load with 156 mg of Invega GALVIN this pm. using lower than typical 234 mg as anticipate lower dose than 9 mg as maintenance and also on Risperdal 2 mg by mouth for now. No evidence of activation from Zoloft. 08/15/23: titrate Invega to 6 mg. Continue Risperdal in pm for now. Depakote level in am 08/18/23 with fasting metabolic labs. 08/14/23: The patient was admitted to the [facility] ([facility] mental health unit) on q15 min checks (behavioral with suicide precautions) for safety. The patient will participate in group, recreational, and milieu therapies and will be offered additional individual and family sessions as clinically appropriate. risks/benefits/alternatives reviewed re: current medications which she agreed to resume, including oral Invega with plan for GALVIN. pulse ox q shift. Inventory Assets Strengths: verbal, accepting of daughter's help Needs: improve coping and medication compliance Suicide Risk Level Suicide Risk Level: Low (q15 min observation checks) Risk Factors Assessment : Yes Do You Have Access To A Gun?: Yes Health Problems: Yes Mental Health Diagnoses: Yes Substance Use Disorders: No Previous Attempt: No Previous Psychiatric Hospitalization: Yes Protective Factors Assessment : No Employed: No ([employer] for mental health) Supportive Family: Yes Interval History Identifying Information SASHA GREWAL is a 62-year-old F who currently lives in [place], has a history of multiple psychiatric hospitalizations for schizoaffective disorder, and was admitted on 08/13/23 15:20 on a 302 involuntary commitment for psychosis/SI which was converted to a 201 on 08/18/23. Chief Complaint "To get help and to feel better." Review of Systems Sleep Information Total Hours of Sleep: 6 Sleep Comments: pt on q-15 minute checks Meal Information Percent Meal Consumed - Breakfast: 100 Percent Meal Consumed - Lunch: 100 Percent Meal Consumed - Dinner: 100 Subjective Subjective Today I met with the patient, received nursing report, and reviewed the chart. We also had a multidisciplinary team meeting to discuss her care. Staff report that the patient is going to have a visit with her family today. She has been trying hard to go to groups and activities and has been present in almost all of them. Staff are pretty impressed with the improvement. When I met with the patient today, she said that she is looking forward to the visit with her daughter. She had a good phone call with her last night. She says that she is doing okay overall and describes her mood at 5 out of 10 and describes it as "happy and sad." She feels well physically. Appetite is good. She said that last night she "slept like a baby." She denies suicidal ideation, homicidal thoughts, or self-harm urges. Physical Exam Psychiatric Patient was alert and cooperative. Eye contact was good. She was clean and relatively well-groomed. Speech was normal. Mood was described as "happy and sad." Affect seemed a bit less restricted today. Thought process was logical and goal-directed. There was no evidence of any hallucinations or delusions. Patient denied any suicidal or homicidal thoughts. Memory and concentration were good. No abnormal movements were seen. Gait was normal. Insight and judgment are impaired. Vital Signs (Past 24 Hours) Last Vital Signs Temp 36.9 C 08/22/23 06:41 Pulse 83 08/22/23 06:41 Resp 16 08/22/23 06:41 BP 108/67 08/22/23 06:41 Pulse Ox 93 08/21/23 11:30 O2 Del Method Room Air 08/21/23 11:30 Results & Data ([facility]) Current Inpatient Medications Current Inpatient Medications: Current Inpatient Medications Acetaminophen (Acetaminophen 325 Mg Tab) 650 mg PO Q4H PRN PRN Reason: Headache or Minor Fever Stop: 09/12/23 16:36 Last Admin: 08/13/23 19:18 Dose: 650 mg Al Hydrox/Mg Hydrox/Simethicone (Aluminum/Magnesium Susp 30 Ml Udc) 30 ml PO Q4H PRN PRN Reason: GI Upset Stop: 09/12/23 16:36 Albuterol (Albuterol Hfa 8 Gm Inhaler) 2 puffs INH Q4 PRN PRN Reason: Wheezing Stop: 09/13/23 07:59 Last Admin: 08/20/23 14:41 Dose: 2 puffs Benztropine Mesylate (Benztropine Mesylate 1 Mg Tab) 1 mg PO BID PRN PRN Reason: Muscle Spasm Stop: 09/16/23 12:20 Bismuth Subsalicylate (Bismuth Subsalicylate Liqd 236 Ml) 15 ml PO PRN PRN PRN Reason: Loose Stool Stop: 09/12/23 16:36 Divalproex Sodium (Divalproex Extended Release 500 Mg Tab) 1,000 mg PO DAILY IDCK Stop: 09/20/23 08:59 Last Admin: 08/22/23 08:50 Dose: 1,000 mg Hydroxyzine HCl (Hydroxyzine Hcl 25 Mg Tab) 50 mg PO HSZ PRN PRN Reason: Insomnia Stop: 09/12/23 16:36 Lorazepam (Lorazepam 0.5 Mg Tab) 0.5 mg PO Q4 PRN PRN Reason: Anxiety Stop: 09/16/23 16:41 Magnesium Hydroxide (Magnesium Hydroxide Susp 30 Ml Udc) 30 ml PO DAILY PRN PRN Reason: Constipation Stop: 09/12/23 16:36 Nicotine Polacrilex (Nicotine Polacrilex 2 Mg Gum) 1 piece MT PRN PRN PRN Reason: Nicotine Withdrawal Symptoms Stop: 09/12/23 16:36 Risperidone (Risperidone 1 Mg Tablet) 1 mg PO Q6 PRN PRN Reason: Anxiety/Agitation Stop: 09/16/23 17:59 Last Admin: 08/17/23 13:24 Dose: 1 mg Sodium Chloride (Sodium Chloride 0.65% Na Soln 45 Ml ([place])) 1 - 2 sprays NA PRN PRN PRN Reason: Nasal Dryness/Congestion Stop: 09/12/23 16:36 Mental Health & Subst Abuse Tx Psychiatrist Name of Psychiatrist: Sadie Montiel Psychiatrist's Date Of Appointment With Psychiatric Provider: 08/30/2023 Time of Appointment with Psychiatrist: 1pm- PLEASE CANCEL OR RESCHEDULE WITHIN 24 HOURS IF NEEDED Psychiatric Appointment Comment: [address] [place] [address] Pipeliner Name of Pipeliner: YESENIA Jeronimogh Erasmo Phone Number for Pipeliner: [phone] Date of Appointment with Pipeliner: 08/26/23 Time of Appointment with Pipeliner: 9am Case Management Appointment Comment: will come to your home Post Discharge Appointments Primary Care Physician Name Of Family Doctor/PCP: PADMAJA [facility] Date of Future Appointment with PCP: 08/31/2023 Time of Appointment with PCP: 11am Provider Appointment Comment: [address] [place] [address], [place] [address] Contact Information Discharge Discharge Address: [address] [place], [place] [address] [address]
[2023-08-22] MEDS: risperiDONE 0.5 MG TABLET PO SCH (16:51)
--- NOTE | 2023-08-23 13:24 | Psychiatric Progress Note ---
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 08/23/2023: The patient seems less paranoid today and more goal-directed. The family visit was tolerated well. She is looking better overall. Overall, I spent a total of 36 minutes with this case including meeting with the patient, reviewing the chart, reviewing the checkout notes from Dr. Encinas, nursing report, multidisciplinary treatment team, and documentation. (1) Schizoaffective disorder: Plan 08/23/23: We will continue with current level of observation and precautions. The Depakote level will be drawn tomorrow morning and hopefully we will have that result back sometime soon after. We may end up adjusting the dose. Otherwise, we are working on discharge planning today and hopeful for discharge sometime soon. 08/22/23: We will continue with our current level of observation and precautions. Now that she has Invega Sustenna in her system, I lowered the risperidone to 0.5 mg for a couple more days and then it will discontinue. I encouraged the patient to keep going to groups and activities. We will see how the family visit goes today. We still have a Depakote level scheduled for Wednesday morning, but my hope is to get her out of the hospital very soon. 08/21/23: We are going to continue with her current level of observation and precautions. Depakote level is scheduled for Wednesday. We have a family visit scheduled tomorrow and we will see how that goes. I encouraged the patient to continue to go to groups and activities and try to participate as well as she can. 08/20/23: shifting Depakote ER to 1000 mg po qam with f/u level on 08/24/23 (Depakote ER so 24 hr trough ideal), taper Risperdal in 2-3 more days at discretion of treating psychiatrist on unit. Patient had acting out after last family visit so staff to contact to retry visit to determine ongoing stay. 08/19/23: completed 2nd Invega injection, will speed up taper of oral antipsychotics given orthostasis (d/c Invega, taper Risperdal to 1 mg). Start shifting dose time of Depakote as patient would prefer am dosing after discharge. Will hold titration of Depakote today given other changes and asymptomatic orthostasis. 08/18/23: depakote level low as predicted, will switch to 750 mg of Depakote ER with plan for 1000 mg if able to swallow the larger pills as once a day administration would be ideal. Continue oral Invega pending 2nd loading dose tomorrow. 08/17/23: hold Zoloft as can't exclude activation, now on 201 commitment. Add Risperdal 1 mg and Ativan prn for restlessness/agitation. Invega is covered with no prior auth and 2nd loading IM and daughter agreed to picking tech for admin here prior to discharge. Inappropriate with peers so continue MNPR. 08/16/23: tolerating Invega, will load with 156 mg of Invega GALVIN this pm. using lower than typical 234 mg as anticipate lower dose than 9 mg as maintenance and also on Risperdal 2 mg by mouth for now. No evidence of activation from Zoloft. 08/15/23: titrate Invega to 6 mg. Continue Risperdal in pm for now. Depakote level in am 08/18/23 with fasting metabolic labs. 08/14/23: The patient was admitted to the [facility] ([facility] mental health unit) on q15 min checks (behavioral with suicide precautions) for safety. The patient will participate in group, recreational, and milieu therapies and will be offered additional individual and family sessions as clinically appropriate. risks/benefits/alternatives reviewed re: current medications which she agreed to resume, including oral Invega with plan for GALVIN. pulse ox q shift. Inventory Assets Strengths: verbal, accepting of daughter's help Needs: improve coping and medication compliance Suicide Risk Level Suicide Risk Level: Low (q15 min observation checks) Risk Factors Assessment : Yes Do You Have Access To A Gun?: Yes Health Problems: Yes Mental Health Diagnoses: Yes Substance Use Disorders: No Previous Attempt: No Previous Psychiatric Hospitalization: Yes Protective Factors Assessment : No Employed: No ([employer] for mental health) Supportive Family: Yes Interval History Identifying Information SASHA GREWAL is a 62-year-old F who currently lives in [place], has a history of multiple psychiatric hospitalizations for schizoaffective disorder, and was admitted on 08/13/23 15:20 on a 302 involuntary commitment for psychosis/SI which was converted to a 201 on 08/18/23. Chief Complaint "To get help and to feel better." Review of Systems Sleep Information Total Hours of Sleep: 6.5 Sleep Comments: pt on q-15 minute checks Meal Information Percent Meal Consumed - Breakfast: 100 Percent Meal Consumed - Lunch: 100 Percent Meal Consumed - Dinner: 100 Subjective Subjective Today I met with the patient, received nursing report, and reviewed the chart. We also had a multidisciplinary treatment team meeting to discuss her care. Staff report that the patient seems to be doing better. She has been out of her room more. She has been attending most of the groups. She had a visit with her daughter yesterday that she tolerated well. The nurse that observed the visit felt that the daughter was antagonizing her mother, but Sol handled it very w ell. When I met with her this morning, she said that she tolerated the meeting 2. She said that she slept well and her appetite is good. She describes her mood today as "peaceful." She denies any hallucinations or ideas of reference. She said that she was just here to get a med change. She is looking forward to going back into her independent living in her 1 bedroom apartment. She feels safe going there. Physically, she feels well. She denies suicidal or homicidal thoughts. Tomorrow she is scheduled for her Depakote level and its likely she will end up discharging soon after that level. Physical Exam Psychiatric Patient was alert and cooperative. Eye contact was good. She was clean and relatively well-groomed. Speech was normal. Mood was described as "peaceful." Affect seemed slightly restricted. Thought process was logical and goal- directed. There was no evidence of any hallucinations or delusions. Patient denied any suicidal or homicidal thoughts. Memory and concentration were good. No abnormal movements were seen. Gait was normal. Insight and judgment are impaired. Vital Signs (Past 24 Hours) Last Vital Signs Temp 36.9 C 08/23/23 06:40 Pulse 90 08/23/23 06:41 Resp 16 08/23/23 06:40 BP 93/64 L 08/23/23 06:41 Pulse Ox 90 08/23/23 11:30 O2 Del Method Room Air 08/23/23 11:30 Results & Data ([facility]) Current Inpatient Medications Current Inpatient Medications: Current Inpatient Medications Acetaminophen (Acetaminophen 325 Mg Tab) 650 mg PO Q4H PRN PRN Reason: Headache or Minor Fever Stop: 09/12/23 16:36 Last Admin: 08/13/23 19:18 Dose: 650 mg Al Hydrox/Mg Hydrox/Simethicone (Aluminum/Magnesium Susp 30 Ml Udc) 30 ml PO Q4H PRN PRN Reason: GI Upset Stop: 09/12/23 16:36 Albuterol (Albuterol Hfa 8 Gm Inhaler) 2 puffs INH Q4 PRN PRN Reason: Wheezing Stop: 09/13/23 07:59 Last Admin: 08/20/23 14:41 Dose: 2 puffs Benztropine Mesylate (Benztropine Mesylate 1 Mg Tab) 1 mg PO BID PRN PRN Reason: Muscle Spasm Stop: 09/16/23 12:20 Bismuth Subsalicylate (Bismuth Subsalicylate Liqd 236 Ml) 15 ml PO PRN PRN PRN Reason: Loose Stool Stop: 09/12/23 16:36 Divalproex Sodium (Divalproex Extended Release 500 Mg Tab) 1,000 mg PO DAILY DICK Stop: 09/20/23 08:59 Last Admin: 08/23/23 08:43 Dose: 1,000 mg Hydroxyzine HCl (Hydroxyzine Hcl 25 Mg Tab) 50 mg PO HSZ PRN PRN Reason: Insomnia Stop: 09/12/23 16:36 Lorazepam (Lorazepam 0.5 Mg Tab) 0.5 mg PO Q4 PRN PRN Reason: Anxiety Stop: 09/16/23 16:41 Magnesium Hydroxide (Magnesium Hydroxide Susp 30 Ml Udc) 30 ml PO DAILY PRN PRN Reason: Constipation Stop: 09/12/23 16:36 Nicotine Polacrilex (Nicotine Polacrilex 2 Mg Gum) 1 piece MT PRN PRN PRN Reason: Nicotine Withdrawal Symptoms Stop: 09/12/23 16:36 Risperidone (Risperidone 1 Mg Tablet) 1 mg PO Q6 PRN PRN Reason: Anxiety/Agitation Stop: 09/16/23 17:59 Last Admin: 08/17/23 13:24 Dose: 1 mg Risperidone (Risperidone 0.5 Mg Tablet) 0.5 mg PO DAILYBD DICK Stop: 08/25/23 17:14 Last Admin: 08/22/23 16:51 Dose: 0.5 mg Sodium Chloride (Sodium Chloride 0.65% Na Soln 45 Ml ([place])) 1 - 2 sprays NA PRN PRN PRN Reason: Nasal Dryness/Congestion Stop: 09/12/23 16:36 Mental Health & Subst Abuse Tx Psychiatrist Name of Psychiatrist: Sadie Montiel Psychiatrist's Date Of Appointment With Psychiatric Provider: 08/30/2023 Time of Appointment with Psychiatrist: 1pm- PLEASE CANCEL OR RESCHEDULE WITHIN 24 HOURS IF NEEDED Psychiatric Appointment Comment: [address] [place] [address] Regional Planner Name of Regional Planner: YESENIA Zimmerman Phone Number for Regional Planner: [phone] Date of Appointment with Regional Planner: 08/26/23 Time of Appointment with Regional Planner: 9am Case Management Appointment Comment: will come to your home Post Discharge Appointments Primary Care Physician Name Of Family Doctor/PCP: [facility] Date of Future Appointment with PCP: 08/31/2023 Time of Appointment with PCP: 11am Provider Appointment Comment: [place] [address] Contact Information Discharge Discharge Address: [address] [place], [place] [address] [address]
--- NOTE | 2023-08-24 08:59 | Discharge Summary ---
Date of Service August 24, 2023 History of Present Illness History reviewed and confirmed as per ED CM: Met with patient bedside along with patients daughter, Nita to complete mental health evaluation. Patient presents sad, bizarre in her responses to questions asked of her, but remains cooperative. Patient admits to suicidal ideations that come and go, but has no particular plan, reporting to history of suicide attempt. When patient was being triaged, she stated that she overdosed, according to patients daughter she did not overdose because she does not have anything to overdose with. Patient will randomly make statements that do not relate to what is being discussed, i.e. I [place] am and have been . Patient denies any visual or auditory hallucinations, but reports history. Patient stopped taking her prescribed medications around the end of July because she lost prescriber. Today, patient had an appointment with medication management with [facility]. Patients daughter provided a list of the most recent medications that were prescribed at her last inpatient admission to [facility]. After discharge from [facility] patients daughter felt her Mom was the most stable she has seen her. Patient is diagnosed with Bipolar Disord er and Schizoaffective Disorder. Patient reports stressors as side effects from all of the medication she has been taking and the changes to her medications over the past year. Patient reports depressive symptoms as feelings of helpless/hopelessness, loss of daily functioning, lack of motivation and decrease in ADLs, patient is malodorous. Patient describes severe anxiety on most days with symptoms of hot flashes, shortness of breath and hiccups with occasional panic attacks. Patient was a former alcoholic and drug user but only drinks on rare occasions and does not use drugs now. Patient smokes a pack of cigarettes daily. Patient lives alone in an apartment and receives SSDI for her mental health. Patient reports hyperthyroidism, emphysema, anemia and occasional headaches. Patient had all of her teeth pulled about 5 year ago, had two sets of dentures, but has lost both sets. Dr. Mcgowan does not believe patient has capacity to sign herself in for psychiatric treatment and patients daughter completed petitioning statement and it reads as follows: Sol has made statements that are concerning; she has stated she does not want to be alive. She has been hallucinating, talking to people who are not there. She says she is and has been for a long time. She has stated she sees birds and they are pecking at her head and now she is . She is seeing and hearing things. She makes open threats, but it is a concern that she has stated she no longer wants to live. She is not in a stable state of mind to make decisions. She is making statements that are false in triage about overdosing. She is not on any drugs she is not mentally stable and has been delusional. She has been diagnosed with bipolar, schizophrenia, manic depression, facing thoughts and is recently treating with [facility]. She has been off her medication which heightens her symptoms. She makes threats of killing people, she has stated she doesnt want to live at all and she is she admits it. The patient has been cooperative with meds as ordered and unit routines. She denies COPD symptoms but did have some transient O2 sat <90 earlier this am, inhaler ordered. Patient knows that does best when takes medication for her schizoaffective disorder. It seems like there was some disruption in routine due to [facility] and needed to transfer to [facility] as relies on daughter for transportation. Unclear if she f/u with [facility] recently/since hospital stay. She is presenting as much clearer than yesterday, perhaps as got a dose of Risperdal and settled into milieu. In looking through past ED visits and records that was hospitalized more twice in the fall and tends to exhibit disorganized behavior off of medication such as hoarding, lack of self care then intermittent agitation. Physical Exam Psychiatric Patient was alert and cooperative. Eye contact was good. She was clean and relatively well-groomed. Speech was normal. Mood was described as "anxious and excited." Affect was brighter. Thought process was logical and goal-directed. There was no evidence of any hallucinations or delusions. Patient denied any suicidal or homicidal thoughts. Memory and concentration were good. No abnormal movements were seen. Gait was normal. Insight and judgment are impaired. Vital Signs (Past 24 Hours) Last Vital Signs Temp 36.6 C 08/24/23 06:36 Pulse 71 08/24/23 06:36 Resp 16 08/24/23 06:36 BP 93/69 L 08/24/23 06:36 Pulse Ox 90 08/23/23 11:30 O2 Del Method Room Air 08/23/23 11:30 Principal Diagnosis Schizoaffective Disorder. Psychiatric Data Patient was admitted here for safety, further evaluation, and treatment. Over time, she took part in our therapeutic milieu, attended groups and activities, maintain good hygiene, and try not to isolate. She has a long history of poor adherence to medications and Dr. Encinas chose to start getting her on Invega Faye tenna as quickly as possible. She was transitioned onto Invega Sustenna without any difficulty. Eventually throughout her stay, we were able to get her off the risperidone oral completely. She had a family meeting with her daughter on August 16 and that went very poorly. On top of that, the same day, we had several admissions which changed to the milieu somewhat and the patient had a very bad day and seem to fall apart. However, over the next several days, she improved dramatically. Dr. Bocanegra also started her on Depakote ER and titrated up to 1000 mg daily. She had a Depakote level drawn this morning which came back at 43, lower than expected. We will increase the discharge dose of Depakote ER to 1500 mg daily. Over the last several days since I have been seeing her, she has been doing well. She has been attending groups reliably. She has been brighter in her affect and more interactive with peers. At this point, we do not feel she is an acute danger to herself or others and we are going to move forward with the discharge. 08/23/23: We will continue with current level of observation and precautions. The Depakote level will be drawn tomorrow morning and hopefully we will have that result back sometime soon after. We may end up adjusting the dose. Otherwise, we are working on discharge planning today and hopeful for discharge sometime soon. 08/22/23: We will continue with our current level of observation and precautions. Now that she has Invega Sustenna in her system, I lowered the risperidone to 0.5 mg for a couple more days and then it will discontinue. I encouraged the patient to keep going to groups and activities. We will see how the family visit goes today. We still have a Depakote level scheduled for Wednesday, but my hope is to get her out of the hospital very soon. 08/21/23: We are going to continue with her current level of observation and precautions. Depakote level is scheduled for Wednesday. We have a family visit scheduled tomorrow and we will see how that goes. I encouraged the patient to continue to go to groups and activities and try to participate as well as she can. 08/20/23: shifting Depakote ER to 1000 mg po qam with f/u level on 08/24/23 (Depakote ER so 24 hr trough ideal), taper Risperdal in 2-3 more days at discretion of treating psychiatrist on unit. Patient had acting out after last family visit so staff to contact to retry visit to determine ongoing stay. 08/19/23: completed 2nd Invega injection, will speed up taper of oral antipsychotics given orthostasis (d/c Invega, taper Risperdal to 1 mg). Start shifting dose time of Depakote as patient would prefer am dosing after discharge. Will hold titration of Depakote today given other changes and asymptomatic orthostasis. 08/18/23: depakote level low as predicted, will switch to 750 mg of Depakote ER with plan for 1000 mg if able to swallow the larger pills as once a day administration would be ideal. Continue oral Invega pending 2nd loading dose tomorrow. 08/17/23: hold Zoloft as can't exclude activation, now on 201 commitment. Add Risperdal 1 mg and Ativan prn for restlessness/agitation. Invega is covered with no prior auth and 2nd loading IM and daughter agreed to pick up attendant for admin here prior to discharge. Inappropriate with peers so continue MNPR. 08/16/23: tolerating Invega, will load with 156 mg of Invega GALVIN this pm. using l ower than typical 234 mg as anticipate lower dose than 9 mg as maintenance and also on Risperdal 2 mg by mouth for now. No evidence of activation from Zoloft. 08/15/23: titrate Invega to 6 mg. Continue Risperdal in pm for now. Depakote level in am 08/18/23 with fasting metabolic labs. 08/14/23: The patient was admitted to the [facility]) on q15 min checks (behavioral with suicide precautions) for safety. The patient will participate in group, recreational, and milieu therapies and will be offered additional individual and family sessions as clinically appropriate. risks/benefits/alternatives reviewed re: current medications which she agreed to resume, including oral Invega with plan for GALVIN. pulse ox q shift. Day of Discharge Assessment Today the patient voices readiness for discharge. They note improvement in mood and deny thoughts to harm self or others. Thoughts remain organized and they are improved from admission. There is no evidence of psychosis. They agree to take mediations as prescribed and keep follow-up appointments. They are stable for discharge to outpatient level of care. Transition of Care Transition Of Care Record: was reviewed with the patient Advance Directives Advance Directives: Yes Advance Directives on File: No (unknown) Power of Mixer Runner: Yes (daughter) Power of Mixer Runner Name: Nita Advance Directives Reason:: Declines as Mental Health Visit. Suicide Risk Level Suicide Risk Level Comments: Patient has been denying suicidal ideation since I met her on August 20. She has been thinking about her future and is excited. I think her risk to self or others is extremely low. Risk Factors Assessment : Yes Do You Have Access To A Gun?: Yes Health Problems: Yes Mental Health Diagnoses: Yes Substance Use Disorders: No Previous Attempt: No Previous Psychiatric Hospitalization: Yes Protective Factors Assessment : No Employed: No ([employer]DI for mental health) Supportive Family: Yes Antipsychotic Medications Patient is requiring antipsychotic medication because of her schizoaffective disorder. That is the main treatment for this disorder. We now have her only on the long-acting injectable. Discharge Data Lab Results 08/13/23 08/13/23 08/13/23 10:35 11:53 11:54 WBC 7.26 RBC 5.08 Hgb 15.2 Hct 46.4 MCV 91.3 MCH 29.9 MCHC 32.8 RDW Std Deviation 42.0 RDW Coeff of Merissa 12.5 Plt Count 212 MPV 10.5 Immature Gran % (Auto) 0.3 Neut % (Auto) 64.4 Lymph % (Auto) 28.5 Garrard % (Auto) 5.4 Eos % (Auto) 0.8 Baso % (Auto) 0.6 Neut # (Auto) 4.68 Lymph # (Auto) 2.07 Garrard # (Auto) 0.39 Eos # (Auto) 0.06 Baso # (Auto) 0.04 Immature Gran # (Auto) 0.02 Sodium 139 Potassium 4.0 Chloride 107 Carbon Dioxide 28 Anion Gap 4 BUN 15 Creatinine 0.67 Est Cr Clr Drug Dosing 74.2 Est GFR ( Amer) 108.4 Est GFR (Non-Af Amer) 93.5 BUN/Creatinine Ratio 22.4 H Glucose 97 Calcium 9.3 Total Bilirubin 0.4 AST 13 ALT 7 Alkaline Phosphatase 55 Total Protein 6.8 Albumin 4.1 Globulin 2.7 Albumin/Globulin Ratio 1.5 Triglycerides Cholesterol LDL Cholesterol, Calc VLDL Cholesterol, Calc HDL Cholesterol Cholesterol/HDL Ratio TSH 0.700 Urine Color Yellow Urine Appearance Clear Urine pH 7.0 Ur Specific Ethel 1.006 Urine Protein Negative Urine Glucose (UA) Negative Urine Ketones Negative Urine Blood Negative Urine Nitrite Negative Urine Bilirubin Negative Urine Urobilinogen Negative Ur Leukocyte Esterase 1+ H Urine WBC (Auto) 1-5 Urine RBC (Auto) 0-4 U Hyaline Cast (Auto) 0 U Epithel Cells (Auto) 10-20 H Urine Bacteria (Auto) Negative Salicylates < 3.0 L Urine Opiates Screen Neg Ur Methadone, Qual Neg Acetaminophen < 3 L Urine Barbiturates Neg Valproic Acid Ur Phencyclidine (PCP) Neg U Amphetamin/Meth Scrn Neg MDMA (Ecstasy) Screen Neg U Benzodiazepines Scrn Neg Ur Cocaine Metabolite Neg U Marijuana (THC) Screen Neg Ethyl Alcohol mg/dL < 10.0 SARS-CoV-2, RNA, NAAT NEGATIVE 08/18/23 07:33 WBC 8.94 RBC 5.14 Hgb 15.2 Hct 47.3 H MCV 92.0 MCH 29.6 MCHC 32.1 RDW Std Deviation 42.6 RDW Coeff of Merissa 12.6 Plt Count 187 MPV 10.0 Immature Gran % (Auto) 0.2 Neut % (Auto) 71.6 Lymph % (Auto) 16.8 Garrard % (Auto) 9.1 Eos % (Auto) 2.0 Baso % (Auto) 0.3 Neut # (Auto) 6.40 Lymph # (Auto) 1.50 Garrard # (Auto) 0.81 H Eos # (Auto) 0.18 Baso # (Auto) 0.03 Immature Gran # (Auto) 0.02 Sodium Potassium Chloride Carbon Dioxide Anion Gap BUN Creatinine Est Cr Clr Drug Dosing Est GFR ( Amer) Est GFR (Non-Af Amer) BUN/Creatinine Ratio Glucose 98 Calcium Total Bilirubin AST ALT Alkaline Phosphatase Total Protein Albumin Globulin Albumin/Globulin Ratio Triglycerides 183 H Cholesterol 206 H LDL Cholesterol, Calc 115 VLDL Cholesterol, Calc 37 H HDL Cholesterol 54 Cholesterol/HDL Ratio 3.8 TSH Urine Color Urine Appearance Urine pH Ur Specific Ethel Urine Protein Urine Glucose (UA) Urine Ketones Urine Blood Urine Nitrite Urine Bilirubin Urine Urobilinogen Ur Leukocyte Esterase Urine WBC (Auto) Urine RBC (Auto) U Hyaline Cast (Auto) U Epithel Cells (Auto) Urine Bacteria (Auto) Salicylates Urine Opiates Screen Ur Methadone, Qual Acetaminophen Urine Barbiturates Valproic Acid 35 L Ur Phencyclidine (PCP) U Amphetamin/Meth Scrn MDMA (Ecstasy) Screen U Benzodiazepines Scrn Ur Cocaine Metabolite U Marijuana (THC) Screen Ethyl Alcohol mg/dL SARS-CoV-2, RNA, NAAT Hospital Course (1) Schizoaffective disorder: Plan Patient will be discharging home today into her independent apartment. She does have support from family. Social workers have set her up with outpatient follow-up for medication management and counseling. She also has a employment evaluator/case manager. Mental Health & Subst Abuse Tx Psychiatrist Name of Psychiatrist: Sadie Montiel Psychiatrist's Date Of Appointment With Psychiatric Provider: 08/30/2023 Time of Appointment with Psychiatrist: 1pm- PLEASE CANCEL OR RESCHEDULE WITHIN 24 HOURS IF NEEDED Psychiatric Appointment Comment: [address] [place] [address] [employer] Name of Supervisor [employer]: YESENIA Zimmerman Phone Number for [employer]: [phone] Date of Appointment with Supervisor [employer]: 08/26/23 Time of Appointment with Supervisor [employer]: 9am Case Management Appointment Comment: will come to your home Post Discharge Appointments Primary Care Physician Name Of Family Doctor/PCP: PADMAJA [facility] Date of Future Appointment with PCP: 08/31/2023 Time of Appointment with PCP: 11am Provider Appointment Comment: [address] [place] [address] [place] [address] Contact Information Discharge Discharge [address] [address] [place] [id number] Discharge Plan Discharge Items Patient Disposition: Home - Self-Care Reason For Visit: MDD Discharge Diagnosis: Schizoaffective Disorder. Activity: Resume your previous activity Non-emergency contact: Primary Care Provider, Psychiatrist and Therapist Call non-emergency contact if: you have any medication questions and your symptoms worsen Follow-up/Referrals: Adelina Vaca CRNP [Primary Care Provider] - Diet: Regular Addtl Attending Provider Instructions: SPECIAL CARE INSTRUCTIONS: 1. Follow through with your scheduled aftercare appointments. If unable to keep an appointment, please call to reschedule. 2. Take your medication only as prescribed. Medication should not be changed or stopped without the approval of your doctor. In the event of worsening symptoms or concerns about side effects, contact your doctor immediately. 3. Utilize new healthy coping skills, anger management skills, and stress management skills learned during your hospitalization. Journal feelings and process them with a support person. Identify stressors or situations that may result in relapse, deterioration or inappropriate behaviors and develop a plan to deal with those issues. 4. If your coping skills are ineffective and you are in crisis, contact your outpatient providers for direction. If unable to reach your providers, please call the [facility] CRISIS LINE AT , go to the [facility] walk-in center at [address], [place], or go to the closest Emergency Room. 5. Avoid alcohol and un-prescribed drugs. 6. You have been provided with the Mental Health Advance Directives Pamphlet for your review. 7. Your condition is stable for discharge to outpatient level of care, but recovery is an ongoing process. Ifthoughts to harm yourself or others return, follow the safety plan developed during your stay. Planning for a safe return home includes securing weapons. Our treatment team recommends weaponsbe removed from the home until your outpatient provider reassesses your progress. In rare cases where the items themselvescannot be removed, guns and ammunitionshould be secured separatelyand keys stored by a reliable personoutside of the home. If you were admitted on an involuntary commitment, the police or other legal authorities may be involved in this process. AFTERCARE APPOINTMENTS: * Please call your insurance company prior to your scheduled appointment to confirm your aftercare providers are covered. Take your insurance information to your appointments. WHO TO CALL AND WHEN: Medical Emergencies: For questions or emergencies related to your hospital stay, please contact the Inpatient Behavioral Health Unit at [phone]. A vendette is on-call 21/12 for the Behavioral Health Unit for emergencies At any time you feel your situation is an emergency, you may also call 911 immediately. Pending Studies at Discharge: No Stand-Alone Forms: My [facility], Smoking Cessation Medications and DC Order Prescriptions: New albuterol sulfate [Ventolin HFA] 90 mcg/actuation Hfa Aerosol Inhaler 2 puff inhalation Q4 PRN (Reason: shortness of breath or wheezing) Qty: 18.5 0RF risperidone 1 mg Tablet 1 mg PO Q6 PRN (Reason: anxiety or agitation) Qty: 10 0RF divalproex [Depakote ER] 500 mg tablet extended release 24 hr 1,500 mg PO DAILY Qty: 90 0RF Invega Sustenna 117 mg/0.75 mL syringe 117 mg IM .q30 Qty: 0.75 0RF Rx Instructions: Due 09/20/2023 Continued calcium carbonate 500 mg calcium (1,250 mg) tablet 500 mg PO DAILY PRN (Reason: dyspepsia) Qty: 30 0RF (DME) Cock-Up Wrist Splint Short Misc See Dose Instructions .ROUTE .MEDSUPPLY Qty: 2 0RF Dose Instruction: As directed Rx Instructions: As directed Invega Sustenna 156 mg/mL syringe 156 mg IM Q30D Qty: 1 0RF Discontinued sertraline 50 mg tablet 50 mg PO DAILY Qty: 30 1RF trazodone 100 mg tablet 100 mg PO DAILY Qty: 30 1RF divalproex 250 mg tablet,delayed release (DR/EC) 250 mg PO BID Qty: 60 1RF risperidone 2 mg tablet 2 mg PO DAILY Discharge Orders: Discharge Order (Routine); Ordered 08/24/23 Ordered By: Jama Grewal Jr Admission Data Admit Date/Time: 08/13/23 15:20 Attending Provider: Jama Grewal Jr Admit Provider: Adriana Bush Primary Care Provider: Adelina Vaca Other Interventions: Discharge Summary Assessment (RN) Last Done: 08/24/23 09:06 PSY Interdisciplinary Discharge Planning Last Done: 08/24/23 09:11 Coding Level of Care Code 50828 D/C day mgmt > 30 min Diagnoses Schizoaffective disorder F25.9
[2023-08-24] MEDS: DIVALPROEX EXTENDED RELEASE 500 MG TAB PO ONE (13:12)
== END 2023-08-24 13:40 | disposition home or self-care (01) | DRG 885 ==
LOC: ED 10:05 → 3S 14:52 → SUATTDRO 15:20 → 3S 08-17 08:14
DX: J43.9 Emphysema, unspecified; Z91.148 Patient's other noncompliance with medication regimen for other reason; F25.9 Schizoaffective disorder, unspecified; R45.851 Suicidal ideations; E78.5 Hyperlipidemia, unspecified; F17.210 Nicotine dependence, cigarettes, uncomplicated